=== PATIENT | male | born 1960 | race Caucasian/White ===

== ENCOUNTER 2017-03-17 19:40 | Emergency (ER) | payer OTHER ==
[2017-03-17 19:48] VITALS: BMI 25.1
--- NOTE | 2017-03-18 00:09 | DR.GENAD ---
HPI - PCP Primary Care Physician: [facility] [place] - Complaint/Symptoms Chief Complaint Doctors Comments: Patient states that he had two nodules on right forearm arise a few days ago; concerned that they may be cancerous. They are non tender non erythematous, moves freely. Chief Complaint:: 2 knots that came up yesterday, i am concerned they are blood clots. located to right upper arm. tender to touch. - Source History Provided: Patient - Mode of Arrival Mode of Arrival: Ambulatory - Timing Onset of Chief Complaint: 03/16/17 PMH - PMH Past Medical History: Yes Past Medical History: GERD, Hypertension Past Medical History Comment: walks with cane. chronic back pain Past Surgical History: Yes Surgical History: Ortho Surgery Past Surgical History Comment: right foot/heel- rt heel artificial - Family History History of Family Medical Conditions: Yes Family Medical History: Hypertension - Social History Type of Tobacco Use: Cigarettes Alcohol Use: Rarely Do you use any recreational Drugs:: No Lives Where: Home - infectious screening Have you traveled outside the country in the last 6 months?: No Isolation: Standard ROS - Review of Systems Eyes: No Symptoms Reported ENTM: No Symptoms Reported Respiratoy: No Symptoms Reported Cardiovascular: No Symptoms Reported Gastrointestinal/Abdominal: No Symptoms Reported Genitourinary: No Symptoms Reported Neurological: No Symptoms Reported Musculoskeletal: No Symptoms Reported Integumentary: No Symptoms Reported Hematologic/Lymphatic: No Symptoms Reported Endocrine: No Symptoms Reported Psychiatric: No Symptoms Reported All Other Systems: Reviewed and Negative PE - Vital Signs Vitals: Pulse Rate 97 Respiratory Rate 16 Blood Pressure 141/75 O2 Sat by Pulse Oximetry 95 - General Limitations: No Limitations General Appearance: Alert, In No Apparent Distress - Head Head Exam: Normal Inspection, Atraumatic - Eyes Eye exam: Normal Appearance, PERRL, EOMI - ENT ENT Exam: Normal Exam External Ear Exam: Normal External Inspection TM/Canal Exam: Bilateral Normal Nose Exam: Normal Nose Exam Mouth Exam: Normal Inspection Throat Exam: Normal Inspection - Neck Neck Exam: Normal Inspection, Full ROM - Chest Chest Inspection: Normal Inspection - Respiratory Respiratory Exam: Normal Lung Sounds Bilat, Accessory Muscle Use Respiratory Exam: Bilateral Clear to Auscultation - Cardiovascular Cardiovascular Exam: Regular Rate, Normal Rhythm - Abdominal Exam Abdominal Exam: Normal Inspection, Normal Bowel Sounds Abdominal Tenderness: negative: RUQ, RLQ, LUQ, LLQ, Epigastrium, Suprapubic, Diffuse, Mild, Moderate, Severe, Other - Extremities Extremities Exam: Normal Inspection - Back Back Exam: Other (Two freely moveable palapble soft tissue nodules beneath skin surface.) - Neurologic Neurological Exam: Alert, Oriented X3, CN II-XII Intact - Psychiatric Psychiatric Exam: Normal Affect - Skin Skin Exam: Warm, Dry, Intact - Diagnosis Discharge Problem: Lipoma Qualifiers: Lipoma location: upper extremity Laterality: right Qualified Code(s): D17.21 - Benign lipomatous neoplasm of skin and subcutaneous tissue of right arm - Discharge Plan Condition: Stable - Follow ups/Referrals Follow ups/Referrals: NFD,None [Primary Care Provider] - 3 days - Instructions
[2017-03-18 00:31] VITALS: BP 127/65
== END 2017-03-18 00:32 | disposition home or self-care (01) ==
LOC: ER 19:55
DX: D17.21 Benign lipomatous neoplasm of skin and subcutaneous tissue of right arm (principal)
CPT/HCPCS: 99281; 99282

== ENCOUNTER 2018-10-09 09:52 | Inpatient (IN) ==
[2018-10-09 09:58] VITALS: BMI 23.6
--- NOTE | 2018-10-09 10:08 | DR.EXTPAIN ---
HPI Time seen Time Seen by Provider: 10/09/18 10:08 PCP Primary Care Physician: ALINA WARD HPI Comment HPI Comment: PATIENT IS A 58 YEAR OLD MALE WITH REDNESS AND SWELLING MEDIAL ASPECT OF THE RIGHT ANKLE ASSOCIATED WITH FEVER THAT IS GETTING WORSE. PATIENT'S ILLNES WAS NOTED 3 DAYS AGO WITH A SMALL RED AREA ON THE ANKLE NOW HAS EXTENDED TO THE ENTIRE ANKLE GOING INTO THE LEGS. THERE IS NO DRAINAGE Complaint/Symptoms Chief Complaint Doctor Comments: RIGHT ANKLE REDNESS PAIN AND SWELLING X 3 DAYS Chief Complaint:: PT C/O RIGHT AKLE PAIN FOR THE PAST 3 DAYS, PT HAS HAND SUGERY IN THE PAST TO THIS ANKLE. BR Self Treatment fo Chief Complaint: EDEMA AND REDNESS NOTED ,BR Nurses notes reviewed Nurses Notes Review: Yes Source History Provided: Patient Mode of arrival Mode of Arrival: Stretcher Timing Onset of Chief Complaint: 09/30/18 Context History of: Arthritis Associated signs and symptoms Associated Signs and Symptoms: Weakness, Pain, Fever, Swelling and Cough PMH PMH Past Medical History: Yes Past Medical History: GERD and Hypertension Past Surgical History: Yes Surgical History: Ortho Surgery Family History History of Family Medical Conditions: Yes Family Medical History: Hypertension Social History Does patient currently use any type of tobacco product: Yes Have you used tobacco products in the last 12 months: Yes Type of Tobacco Use: Cigarettes How many years tobacco product used: 30 Does any household member use tobacco: No Do you use any recreational Drugs:: No Lives With: Family Lives Where: Home infectious screening In the last 2 months have you had wt loss of >10#?: NO Have you had fever, night sweats or hemotysis?: No Have you traveled outside the country in the last 6 months?: No Isolation: Standard ROS Review of Systems Constitutional: See HPI, Chills, Fever, Weakness and Fatigue Eyes: No Symptoms Reported and See HPI; negative Eye Pain, Tearing and Discharge ENTM: See HPI and Nose Congestion Respiratoy: See HPI, Productive Cough and Short of Breath; negative Wheezing Cardiovascular: No Symptoms Reported and See HPI; negative Chest Pain and Edema Gastrointestinal/Abdominal: No Symptoms Reported, See HPI and Nausea; negative Abdominal Pain, Constipation, Diarrhea and Vomiting Genitourinary: No Symptoms Reported and See HPI; negative Dysuria, Frequency and Hematuria Neurological: No Symptoms Reported, See HPI, Headache, Weakness and Dizziness Musculoskeletal: No Symptoms Reported, See HPI, Back Pain and Muscle Pain Integumentary: No Symptoms Reported, See HPI, Change in Color, Rash and Itching; negative Juandice Hematologic/Lymphatic: No Symptoms Reported and See HPI Endocrine: No Symptoms Reported and See HPI Psychiatric: No Symptoms Reported and See HPI All Other Systems: Reviewed and Negative PE Vital Signs Vitals: Temperature 99.2 F Pulse Rate [Left Brachial] 77 Pulse Rate [Right Radial] 80 Pulse Rate 90 Respiratory Rate 18 Blood Pressure [Left Arm] 130/74 Blood Pressure 147/71 O2 Sat by Pulse Oximetry 97 General Limitations: No Limitations General Appearance: Alert and In No Apparent Distress Head Head Exam: Normal Inspection Eyes Eye exam: Normal Appearance, PERRL and EOMI; negative Scleral Icterus and Conjunctival Injection ENT ENT Exam: Normal External Ear Exam; negative Normal Oropharynx and TM's Normal Bilaterally Neck Neck Exam: Normal Inspection and Trachea Midline; negative Tenderness and Lymphadenopathy Chest Chest Inspection: Normal Inspection and Symmetric Chest Wall Rise; negative Tenderness Respiratory Respiratory Exam: Normal Lung Sounds Bilat; negative Accessory Muscle Use, Chest Wall Tenderness and Respiratory Distress Respiratory Exam: Bilateral: Rhonchi and Lower: Rhonchi Cardiovascular Cardiovascular Exam: Regular Rate, Normal Rhythm and Normal Heart Sounds; negative Systolic Murmur and Diastolic Murmur Abdominal Exam Abdominal Exam: Normal Inspection, Normal Bowel Sounds and Soft; negative Tenderness Extremities Extremities Exam: Normal Inspection Back Back Exam: Normal Inspection Neurological Neurological Exam: Alert, Oriented X3 and CN II-XII Intact Psychiatric Psychiatric Exam: Normal Affect and Normal Mood Skin Skin Exam: Warm, Dry, Intact and Normal Color MDM Differential Diagnosis Differential Diagnosis: Other (CELLULITIS RIGHT ANKLE RULE OUT SEPTIC ARTHRITIS RIGHT ANKLE) COURSE Treatment Treatment: SEE ORDERS Consultation Consultation Comments: DISCUSSED PATIENT WITH DR. RIVERS, HE WILL ADMIT PATIENT X 2 MINTUTES. ADMIT ORDERS DONE Education/Counseling Education/Counseling: Patient Educated On: Diagnosis ROR Labs Reviewed Laboratory Results Reviewed?: Yes Result Diagrams: 10/11/18 05:08 10/11/18 05:08 Laboratory: 10/09/18 11:41 Blood Blood Culture - Preliminary 10/09/18 14:38 Foot - Right Gram Stain - Final 10/09/18 14:38 Foot - Right Wound Culture - Final Methicillin Resis Staph Aureus 10/09/18 11:00 Blood Blood Culture - Preliminary WBC 8.0 X10^3/uL (3.6-10.0) 10/11/18 05:08 RBC 3.58 X10^6/uL (4.7-6.0) L 10/11/18 05:08 Hgb 7.6 g/dL (13.5-18.0) L 10/11/18 05:08 Hct 23.4 % (42.0-54.0) L 10/11/18 05:08 MCV 65.3 fL (80.0-100.0) L 10/11/18 05:08 MCH 21.3 pg (27.0-34.0) L 10/11/18 05:08 MCHC 32.6 g/dL (33.0-35.0) L 10/11/18 05:08 RDW 17.8 % (11.6-16.5) H 10/11/18 05:08 Plt Count 98 X10^3/uL (150.0-450.0) L 10/11/18 05:08 Plt Count Comment Decreased (ADEQUATE) 10/11/18 05:08 MPV 8.8 fL (7.4-11.0) 10/11/18 05:08 Neut % (Auto) 76.4 % (42.0-75.0) H 10/11/18 05:08 Lymph % (Auto) 12.2 % (21.0-51.0) L 10/11/18 05:08 [place] % (Auto) 9.7 % (0.0-13.0) 10/11/18 05:08 Eos % (Auto) 1.0 % (0.9-2.9) 10/11/18 05:08 Baso % (Auto) 0.7 % (0.2-1.0) 10/11/18 05:08 Neut # (Auto) 6.1 x10^3/uL (2.2-4.8) H 10/11/18 05:08 Lymph # (Auto) 1.0 X10^3/uL (1.3-2.9) L 10/11/18 05:08 [place] # (Auto) 0.8 x10^3/uL (0.3-0.8) 10/11/18 05:08 Eos # (Auto) 0.1 x10^3/uL (0.0-0.2) 10/11/18 05:08 Baso # (Auto) 0.1 X10^3/uL (0.0-0.1) 10/11/18 05:08 Absolute Nucleated RBC 0.1 /100WBC 10/11/18 05:08 Plt Morphology Comment Normal (NORMAL) 10/11/18 05:08 RBC Morphology Abnormal (NORMAL) 10/11/18 05:08 Hypochromasia 2+ A 10/11/18 05:08 Anisocytosis Slight A 10/11/18 05:08 Microcytosis 1+ A 10/11/18 05:08 Ovalocytes Present 10/11/18 05:08 ESR 104 MM/HOUR (0-15) H 10/09/18 16:16 Sodium 136 mmol/L (136-145) 10/11/18 05:08 Corrected Sodium TNP 10/11/18 05:08 Potassium 3.7 mmol/L (3.5-5.1) 10/11/18 05:08 Chloride 105 mmol/L (98-107) 10/11/18 05:08 Carbon Dioxide 20.0 mmol/L (21-32) L 10/11/18 05:08 BUN 13 mg/dL (7-18) 10/11/18 05:08 Creatinine 0.95 mg/dL (0.70-1.30) 10/11/18 05:08 Est GFR (MDRD) Af Amer > 60 (>60) 10/11/18 05:08 Est GFR (MDRD) Non-Af > 60 (>60) 10/11/18 05:08 Glucose 107 mg/dL (65-99) H 10/11/18 05:08 Lactic Acid 1.5 mmol/L (0.4-2.0) 10/09/18 11:41 Uric Acid 3.4 mg/dL (3.5-7.2) L 10/09/18 16:16 Calcium 8.8 mg/dL (8.5-10.1) 10/11/18 05:08 Corrected Calcium 10.6 mg/dL (8.5-10.1) H 10/11/18 05:08 Magnesium 2.0 mg/dL (1.7-2.9) 10/11/18 05:02 Total Bilirubin 1.40 mg/dL (0.2-1.0) H 10/11/18 05:08 AST 47 Units/L (15-37) H 10/11/18 05:08 ALT 25 Units/L (12-78) 10/11/18 05:08 Alkaline Phosphatase 316 Units/L (46-116) H 10/11/18 05:08 C-Reactive Protein 237.70 mg/L (0-3.0) H 10/09/18 11:41 Total Protein 7.1 g/dL (6.4-8.2) 10/11/18 05:08 Albumin 1.7 g/dL (3.4-5.0) L 10/11/18 05:08 Globulin 5.4 g/dL (2.5-4.5) H 10/11/18 05:08 Albumin/Globulin Ratio 0.3 Ratio (1.1-2.1) L 10/11/18 05:08 Specimen Type Clean catch urine 10/09/18 16:40 Urine Color Dark yellow (YELLOW) 10/09/18 16:40 Urine Appearance Cloudy (CLEAR) 10/09/18 16:40 Urine pH 6.0 (5.0 - 8.0) 10/09/18 16:40 Ur Specific [place] 1.015 (1.000-1.030) 10/09/18 16:40 Urine Protein 3+ (NEGATIVE) 10/09/18 16:40 Urine Glucose (UA) Negative (NEGATIVE) 10/09/18 16:40 Urine Ketones Negative (NEGATIVE) 10/09/18 16:40 Urine Occult Blood 4+ (NEGATIVE) 10/09/18 16:40 Urine Nitrite Negative (NEGATIVE) 10/09/18 16:40 Urine Bilirubin 2+ (NEGATIVE) 10/09/18 16:40 Urine Urobilinogen 3+ (NORMAL) 10/09/18 16:40 Ur Leukocyte Esterase 1+ (NEGATIVE) 10/09/18 16:40 Urine RBC 5-10 /HPF (NONE SEEN) 10/09/18 16:40 Urine WBC 3-5 /HPF (NONE SEEN) 10/09/18 16:40 Ur Squamous Epith Cells Few /HPF (NEGATIVE) 10/09/18 16:40 Amorphous Sediment 1+ /HPF (NEGATIVE) 10/09/18 16:40 Urine Bacteria Trace /HPF (NEGATIVE) 10/09/18 16:40 Urine Mucus Moderate /HPF (NEGATIVE) 10/09/18 16:40 Ur Culture Indicated? No/not indicated 10/09/18 16:40 Vancomycin Trough 12.7 ug/mL (15-20) L 10/10/18 20:35 XRAY XRAY Interpreted by: Radiologist XRAY Findings: REPORT ON RECORD NOTED AND DISCUSSED WITH PATIENT Opioid Opioid Risk Tool Total: 0 Total Score Risk Category: Low Risk Copyright: Keith VERDUGO predicting aberrant behaviors Management Prescription drug monitoring program results: PDMP was not reviewed Diagnosis Discharge Problem: Cellulitis of right ankle Septic arthritis of right ankle Qualifiers: Septic arthritis organism: due to unspecified organism Qualified Code(s): M00.9 - Pyogenic arthritis, unspecified
[2018-10-09] MEDS ORDERED: ZOFRAN INJ 4 MG VIAL IVP ONE (11:03)
[2018-10-09] MEDS ORDERED: MORPHINE SULFATE INJ 4 MG IVP ONE (11:03)
[2018-10-09] MEDS ORDERED: ZOFRAN INJ 4 MG VIAL ONE (11:48)
--- NOTE | 2018-10-09 11:48 | RAD ---
HISTORY: Right ankle pain for the past 3 days. Prior surgery to the ankle. Study: Three-view right ankle Comparison: No priors Findings: There is evidence of osteotomy involving the lower posterior half of the calcaneus. Severe degenerative changes seen involving the subtalar joint. There is medial and lateral soft tissue swelling. Surgical clips are seen in the region of the posterior right ankle soft tissues. No evidence of fracture or dislocation is seen. There is no significant periosteal reaction. IMPRESSION: Postsurgical changes, degenerative changes and soft tissue swelling. No fracture or dislocation is seen. Reported By:
[2018-10-09] MEDS ORDERED: MORPHINE SULFATE INJ 2 MG INJ ONE ×2 (11:49→11:51)
[2018-10-09 11:55] LABS: BASOPHILS # (AUTO) 0.1 X10^3/uL (0.0-0.1); BASOPHILS % (AUTO) 0.8 % (0.2-1.0); EOSINOPHILS # (AUTO) 0.1 x10^3/uL (0.0-0.2); EOSINOPHILS % (AUTO) 0.8 % (0.9-2.9); HEMATOCRIT 34.4 % (42.0-54.0); HEMOGLOBIN 11.1 g/dL (13.5-18.0); LYMPHOCYTES # (AUTO) 0.8 X10^3/uL (1.3-2.9); LYMPHOCYTES % (AUTO) 8.1 % (21.0-51.0); MEAN CORPUSCULAR HEMOGLOBIN 20.8 pg (27.0-34.0); MEAN CORPUSCULAR HGB CONC 32.1 g/dL (33.0-35.0); MEAN CORPUSCULAR VOLUME 64.8 fL (80.0-100.0); MEAN PLATELET VOLUME 8.3 fL (7.4-11.0); MONOCYTES # (AUTO) 0.7 x10^3/uL (0.3-0.8); NEUTROPHILS # (AUTO) 8.6 x10^3/uL (2.2-4.8); NEUTROPHILS % (AUTO) 83.3 % (42.0-75.0); PLATELET COUNT 124 X10^3/uL (150.0-450.0); RED BLOOD COUNT 5.32 X10^6/uL (4.7-6.0); RED CELL DISTRIBUTION WIDTH 18.5 % (11.6-16.5); WHITE BLOOD COUNT 10.4 X10^3/uL (3.6-10.0)
[2018-10-09] MEDS: NS 1000 ML 1,000 ML IV SCH ×2 (11:57→21:28)
[2018-10-09 12:08] LABS: ALANINE AMINOTRANSFERASE 17 Units/L (12-78); ALBUMIN 2.2 g/dL (3.4-5.0); ALKALINE PHOSPHATASE 349 Units/L (46-116); ASPARTATE AMINO TRANSFERASE 49 Units/L (15-37); BLOOD UREA NITROGEN 18 mg/dL (7-18); CALCIUM 10.5 mg/dL (8.5-10.1); CARBON DIOXIDE 24.5 mmol/L (21-32); CHLORIDE 98 mmol/L (98-107); COR CA(FOR HYPOALB) 11.9 mg/dL (8.5-10.1); CREATININE 1.01 mg/dL (0.70-1.30); SODIUM 132 mmol/L (136-145); TOTAL PROTEIN 9.2 g/dL (6.4-8.2); eGFR NON BLACK RACES > 60 (>60)
[2018-10-09 12:09] LABS: HYPOCHROMASIA 2+; MICROCYTOSIS 2+; PLATELET MORPHOLOGY COMMENT NORMAL (NORMAL)
[2018-10-09 12:12] LABS: LACTIC ACID 1.5 mmol/L (0.4-2.0)
--- NOTE | 2018-10-09 13:11 | RAD ---
HISTORY: Central line placement Study: Single-view chest Comparison: No priors Findings: Left-sided subclavian line is present with the tip in mid SVC. No pneumothorax is seen. Trachea is midline. Heart size is normal. There is aortic uncoiling. There are increased interstitial markings bilaterally which may indicate interstitial fibrotic disease. No consolidation, CHF or pleural fluid is seen. Osseous structures are intact. IMPRESSION: Left-sided subclavian line present with the tip in the mid SVC. Bilateral interstitial lung disease without consolidation, CHF, pleural fluid or pneumothorax. Reported By:
[2018-10-09] MEDS ORDERED: MORPHINE SULFATE INJ 4 MG IVP PRN (13:39)
[2018-10-09] MEDS ORDERED: LEVAQUIN PREMIX IV 750 MG 750 MG/150 ML BAG IV ONE (13:39)
[2018-10-09] MEDS ORDERED: ZOFRAN INJ 4 MG VIAL IVP PRN (13:39)
[2018-10-09] MEDS: VANCOMYCIN HCL 1 GM VIAL 1 G in D5W 250 ML IV 250 ML IV SCH ×2 (13:48→20:57)
[2018-10-09] MEDS ORDERED: ZOFRAN TAB 4 MG PO PRN (13:58)
[2018-10-09] MEDS ORDERED: PHARMACY CONSULT - VANCOMYCIN XX SCH (14:00)
[2018-10-09] MEDS: ZOFRAN SYRUP 4 MG UDC PO SCH ×2 (15:50→21:28)
[2018-10-09 17:20] LABS: BILIRUBIN,URINE 2+ (NEGATIVE); BLOOD/HEMOGLOBIN,URINE 4+ (NEGATIVE); GLUCOSE, URINE NEGATIVE (NEGATIVE); KETONES,URINE NEGATIVE (NEGATIVE); LEUKOCYTE ESTERASE ,URINE 1+ (NEGATIVE); NITRITES,URINE NEGATIVE (NEGATIVE); PROTEIN,URINE 3+ (NEGATIVE); UROBILINOGEN,URINE 3+ (NORMAL)
[2018-10-09 18:20] LABS: APPEARANCE,URINE CLOUDY (CLEAR); COLOR,URINE DARK YELLOW (YELLOW)
[2018-10-09 18:21] LABS: AMORPHOUS SEDIMENT,UR 1+ /HPF (NEGATIVE); BACTERIA,URINE TRACE /HPF (NEGATIVE); SQUAMOUS EPITHELIAL CELL,UR FEW /HPF (NEGATIVE)
[2018-10-09 18:27] LABS: MUCUS,URINE MODERATE /HPF (NEGATIVE)
[2018-10-09] MEDS: TORADOL 30 MG VIAL IVP PRN (18:31)
[2018-10-09] MEDS: MOTRIN TAB 600 MG PO PRN (22:52)
[2018-10-10] MEDS: TORADOL 30 MG VIAL IVP PRN ×3 (02:57→20:51)
[2018-10-10] MEDS: NS 1000 ML 1,000 ML IV SCH ×3 (04:06→21:17)
[2018-10-10] MEDS: ZOFRAN SYRUP 4 MG UDC PO SCH (04:06)
[2018-10-10 05:46] LABS: ALANINE AMINOTRANSFERASE 18 Units/L (12-78); ALBUMIN 1.7 g/dL (3.4-5.0); ALKALINE PHOSPHATASE 288 Units/L (46-116); ASPARTATE AMINO TRANSFERASE 35 Units/L (15-37); BLOOD UREA NITROGEN 17 mg/dL (7-18); CALCIUM 8.8 mg/dL (8.5-10.1); CARBON DIOXIDE 25.5 mmol/L (21-32); CHLORIDE 102 mmol/L (98-107); COR CA(FOR HYPOALB) 10.6 mg/dL (8.5-10.1); CREATININE 1.06 mg/dL (0.70-1.30); SODIUM 134 mmol/L (136-145); TOTAL PROTEIN 7.2 g/dL (6.4-8.2); eGFR NON BLACK RACES > 60 (>60)
[2018-10-10] MEDS: MOTRIN TAB 600 MG PO PRN ×2 (05:59→16:54)
[2018-10-10 07:30] LABS: BASOPHILS % (AUTO) 0.5 % (0.2-1.0); EOSINOPHILS # (AUTO) 0.1 x10^3/uL (0.0-0.2); EOSINOPHILS % (AUTO) 1.5 % (0.9-2.9); HEMATOCRIT 25.1 % (42.0-54.0); HEMOGLOBIN 8.1 g/dL (13.5-18.0); LYMPHOCYTES # (AUTO) 0.8 X10^3/uL (1.3-2.9); LYMPHOCYTES % (AUTO) 11.4 % (21.0-51.0); MEAN CORPUSCULAR HEMOGLOBIN 20.8 pg (27.0-34.0); MEAN CORPUSCULAR HGB CONC 32.2 g/dL (33.0-35.0); MEAN CORPUSCULAR VOLUME 64.4 fL (80.0-100.0); MEAN PLATELET VOLUME 8.1 fL (7.4-11.0); MONOCYTES # (AUTO) 0.9 x10^3/uL (0.3-0.8); MONOCYTES % (AUTO) 12.2 % (0.0-13.0); NEUTROPHILS # (AUTO) 5.4 x10^3/uL (2.2-4.8); NEUTROPHILS % (AUTO) 74.4 % (42.0-75.0); PLATELET COUNT 95 X10^3/uL (150.0-450.0); RED CELL DISTRIBUTION WIDTH 18.3 % (11.6-16.5); WHITE BLOOD COUNT 7.3 X10^3/uL (3.6-10.0)
[2018-10-10 07:35] LABS: HYPOCHROMASIA 2+; PLATELET MORPHOLOGY COMMENT NORMAL (NORMAL)
[2018-10-10 07:36] LABS: ANISOCYTOSIS SLIGHT; MICROCYTOSIS 2+; OVALOCYTES PRESENT
[2018-10-10] MEDS: LYRICA CAP 100 MG PO SCH (09:25)
[2018-10-10] MEDS: VANCOMYCIN HCL 1 GM VIAL 1 G in D5W 250 ML IV 250 ML IV SCH ×2 (09:26→22:03)
[2018-10-10] MEDS: PriLOSEC PO SCH (09:26)
[2018-10-10] MEDS: ROXICODONE TAB 15 MG PO PRN ×2 (09:31→18:05)
[2018-10-10] MEDS: ZESTRIL TAB 10 MG PO SCH (09:33)
[2018-10-10] MEDS ORDERED: PHARMACY COMMENT IV NR (20:30)
[2018-10-10 21:00] LABS: CREATININE 0.8 mg/dL (0.70-1.30); VANCOMYCIN,TROUGH 12.7 ug/mL (15-20)
[2018-10-10] MEDS: RESTORIL CAP 15 MG PO PRN (21:44)
[2018-10-10] MEDS ORDERED: PHARMACY CONSULT - VANCOMYCIN XX SCH (22:00)
[2018-10-11] MEDS: MOTRIN TAB 600 MG PO PRN ×3 (00:12→23:41)
[2018-10-11] MEDS: NS 1000 ML 1,000 ML IV SCH ×3 (02:25→21:11)
[2018-10-11] MEDS: ROXICODONE TAB 15 MG PO PRN ×3 (02:31→20:14)
[2018-10-11] MEDS: TORADOL 30 MG VIAL IVP PRN ×2 (05:23→17:15)
[2018-10-11 05:29] LABS: BASOPHILS # (AUTO) 0.1 X10^3/uL (0.0-0.1); BASOPHILS % (AUTO) 0.7 % (0.2-1.0); EOSINOPHILS # (AUTO) 0.1 x10^3/uL (0.0-0.2); HEMATOCRIT 23.4 % (42.0-54.0); HEMOGLOBIN 7.6 g/dL (13.5-18.0); LYMPHOCYTES % (AUTO) 12.2 % (21.0-51.0); MEAN CORPUSCULAR HEMOGLOBIN 21.3 pg (27.0-34.0); MEAN CORPUSCULAR HGB CONC 32.6 g/dL (33.0-35.0); MEAN CORPUSCULAR VOLUME 65.3 fL (80.0-100.0); MEAN PLATELET VOLUME 8.8 fL (7.4-11.0); MONOCYTES # (AUTO) 0.8 x10^3/uL (0.3-0.8); MONOCYTES % (AUTO) 9.7 % (0.0-13.0); NEUTROPHILS # (AUTO) 6.1 x10^3/uL (2.2-4.8); NEUTROPHILS % (AUTO) 76.4 % (42.0-75.0); PLATELET COUNT 98 X10^3/uL (150.0-450.0); RED BLOOD COUNT 3.58 X10^6/uL (4.7-6.0); RED CELL DISTRIBUTION WIDTH 17.8 % (11.6-16.5)
[2018-10-11 05:38] LABS: ALANINE AMINOTRANSFERASE 25 Units/L (12-78); ALBUMIN 1.7 g/dL (3.4-5.0); ALKALINE PHOSPHATASE 316 Units/L (46-116); ASPARTATE AMINO TRANSFERASE 47 Units/L (15-37); BLOOD UREA NITROGEN 13 mg/dL (7-18); CALCIUM 8.8 mg/dL (8.5-10.1); CHLORIDE 105 mmol/L (98-107); COR CA(FOR HYPOALB) 10.6 mg/dL (8.5-10.1); CREATININE 0.95 mg/dL (0.70-1.30); SODIUM 136 mmol/L (136-145); TOTAL PROTEIN 7.1 g/dL (6.4-8.2); eGFR NON BLACK RACES > 60 (>60)
[2018-10-11 06:07] LABS: PLATELET MORPHOLOGY COMMENT NORMAL (NORMAL)
[2018-10-11 06:08] LABS: ANISOCYTOSIS SLIGHT; HYPOCHROMASIA 2+; MICROCYTOSIS 1+; OVALOCYTES PRESENT
[2018-10-11] MEDS ORDERED: POTASSIUM CHL 60 MEQ/NS 0.45% 500 ML IV PRN (06:14)
[2018-10-11] MEDS ORDERED: MAGNESIUM SULFATE 1 GRAM/100 mL PREMIX 1 GM/100 ML BAG IV PRN (06:14)
[2018-10-11] MEDS ORDERED: KLOR-CON PO PRN (06:14)
[2018-10-11] MEDS ORDERED: K-RIDER 10 MEQ/NS 100 ML 10 MEQ/100 ML BAG IV PRN (06:14)
[2018-10-11] MEDS ORDERED: POTASSIUM CHL 40 MEQ/NS 0.45% 500 ML IV PRN (06:14)
[2018-10-11] MEDS ORDERED: POTASSIUM CHLORIDE LIQ 20 MEQ UDC PO PRN (06:14)
[2018-10-11] MEDS ORDERED: MICRO K EXTEN CAP 10 MEQ PO PRN (06:14)
[2018-10-11] MEDS: K-DUR TAB 20 MEQ PO PRN (06:36)
[2018-10-11] MEDS: VANCOMYCIN HCL 1 GM VIAL 1 G in D5W 250 ML IV 250 ML IV SCH ×2 (08:21→21:11)
[2018-10-11] MEDS: ZESTRIL TAB 10 MG PO SCH (08:22)
[2018-10-11] MEDS: LYRICA CAP 100 MG PO SCH (08:22)
[2018-10-11] MEDS: PriLOSEC PO SCH (08:22)
[2018-10-11] MEDS: RESTORIL CAP 15 MG PO PRN (20:14)
[2018-10-12] MEDS: TORADOL 30 MG VIAL IVP PRN ×2 (03:28→17:34)
[2018-10-12] MEDS: NS 1000 ML 1,000 ML IV SCH ×3 (03:30→19:44)
[2018-10-12] MEDS: ROXICODONE TAB 15 MG PO PRN (04:33)
[2018-10-12 05:51] LABS: BASOPHILS % (AUTO) 0.6 % (0.2-1.0); EOSINOPHILS # (AUTO) 0.1 x10^3/uL (0.0-0.2); EOSINOPHILS % (AUTO) 2.3 % (0.9-2.9); HEMATOCRIT 23.1 % (42.0-54.0); HEMOGLOBIN 7.5 g/dL (13.5-18.0); LYMPHOCYTES % (AUTO) 15.9 % (21.0-51.0); MEAN CORPUSCULAR HEMOGLOBIN 21.4 pg (27.0-34.0); MEAN CORPUSCULAR HGB CONC 32.4 g/dL (33.0-35.0); MEAN PLATELET VOLUME 8.5 fL (7.4-11.0); MONOCYTES # (AUTO) 0.6 x10^3/uL (0.3-0.8); MONOCYTES % (AUTO) 9.3 % (0.0-13.0); NEUTROPHILS # (AUTO) 4.6 x10^3/uL (2.2-4.8); NEUTROPHILS % (AUTO) 71.9 % (42.0-75.0); PLATELET COUNT 101 X10^3/uL (150.0-450.0); RED CELL DISTRIBUTION WIDTH 17.8 % (11.6-16.5); WHITE BLOOD COUNT 6.4 X10^3/uL (3.6-10.0)
[2018-10-12 06:02] LABS: ALANINE AMINOTRANSFERASE 39 Units/L (12-78); ALBUMIN 1.6 g/dL (3.4-5.0); ALKALINE PHOSPHATASE 355 Units/L (46-116); ASPARTATE AMINO TRANSFERASE 86 Units/L (15-37); BLOOD UREA NITROGEN 8 mg/dL (7-18); CALCIUM 8.8 mg/dL (8.5-10.1); CARBON DIOXIDE 20.2 mmol/L (21-32); CHLORIDE 106 mmol/L (98-107); COR CA(FOR HYPOALB) 10.7 mg/dL (8.5-10.1); COR NA(FOR HYPERGLY) 138 mmol/L (136-145); CREATININE 1.02 mg/dL (0.70-1.30); SODIUM 137 mmol/L (136-145); TOTAL PROTEIN 7.2 g/dL (6.4-8.2); eGFR NON BLACK RACES > 60 (>60)
[2018-10-12 06:17] LABS: HYPOCHROMASIA 2+; MICROCYTOSIS 1+; PLATELET MORPHOLOGY COMMENT NORMAL (NORMAL)
[2018-10-12] MEDS: K-DUR TAB 20 MEQ PO PRN (06:19)
[2018-10-12] MEDS: VANCOMYCIN HCL 1 GM VIAL 1 G in D5W 250 ML IV 250 ML IV SCH ×2 (08:30→21:42)
[2018-10-12] MEDS: MORPHINE SULFATE INJ 4 MG IVP PRN ×2 (08:56→20:57)
[2018-10-12] MEDS ORDERED: PHARMACY CONSULT - DOSE _____ XX SCH (09:00)
[2018-10-12] MEDS ORDERED: STERILE WATER IRRIGATION ONE (09:34)
--- NOTE | 2018-10-12 11:21 | DR.H&P ---
H&P - History & Physical for Day of: H&P Date: 10/09/18 - Chief Complaint Chief Complaint: RIGHT FOOT PAIN AND SWELLING - History of Present Illness History of Present Illness: IS A 58 YEAR OLD PATIENT OF OURS. HE PRESENTED TO THE ER WITH COMPLAINTS OF RIGHT ANKLE PAIN AND SWELLING X 3 DAYS. ON EXAMINATION, THERE IS REDNESS AND SWELLING TO THE MEDIAL ASPECT OF THE RIGHT ANKLE. HE REPORTS THAT IT BEGAN A SMALL RED AREA ON THE ANKLE AND HAS NOW EXTENDED TO THE ENTIRE ANKLE AND IS MOVING UP TOWARDS THE LEGS. HE REPORTS FEVER AND WEAKNESS AT HOME. ON ARRIVAL, VITALS WERE 98.1-90-20-94%-147/71. LABS WERE OBTAINED. ABNORMAL LAB VALUES INCLUDE THE FOLLOWING: WBC 10.4, HGB 11.1, HCT 34.4, PLT COUNT 124, SODIUM 132, GLUCOSE 110, CALCIUM 10.5, TOTAL BILI 3.10, AST 49, ALK PHOS 349, CRP 237.70, TOTAL PROTEIN 9.2, ALBUMIN 2.2, GLOBULIN 7.0. A URINALYSIS WAS OBTAINED AND REVEALED: WBC 3-5, RBC 5-10, BACTERIA TRACE, LEUKOCYTES 1+, OCCULT BLOOD 4+. BLOOD AND WOUND CULTURES WERE TAKEN. AN ANKLE XRAY WAS OBTAINED AND REVEALED: There is evidence of osteotomy involving the lower posterior half of the calcaneus. Severe degenerative changes seen involving the subtalar joint. There is medial and lateral soft tissue swelling. Surgical clips are seen in the region of the posterior right ankle soft tissues. No evidence of fracture or dislocation is seen. There is no significant periosteal reaction. DUE TO POSSIBLE OSTEOMYELITIS, WE CONSULTED FOR CENTRAL LINE PLACMENT. A CENTRAL LINE WAS PLACED WHILE PATIENT WAS IN THE ER. HE WAS ADMITTED TO THE HOSPITAL FOR FURTHER EVALUATION AND TREATMENT OF RIGHT ANKLE CELLULITIS, RULE OUT SEPTIC ARTHRITIS RIGHT ANKLE. HE WAS STARTED ON NORMAL SALINE AT 125ML/HR, VANCOMYCIN 1G IV Q12H, MORPHINE 4MG IV Q4H PRN PAIN, TORADOL 30MG IV Q8H PRN PAIN, AND HIS HOME MEDICATIONS WERE RESUMED. WE PLANNED TO FOLLOW UP WITH [facility] AND CONTINUE TO MONITOR. - Past Medical History Past Medical History: Hypertension, GERD - Past Surgical History Surgical History: Ortho Surgery - Family History Family Medical History: Hypertension - Social History Does patient currently use any type of tobacco product: Yes Have you used tobacco products in the last 12 months: Yes Type of Tobacco Use: Cigarettes How many years tobacco product used: 30 Does any household member use tobacco: No Alcohol Use: None Drug Use: Prescription Drugs - Medications Home Medications: No Known Drug Allergies Allergy (Verified 10/09/18 09:54) CONTINUE taking the following medications erythromycin 1 drp OPHTHALMIC (EYE) TID 10/09/18 [History] - Review of Systems Constitutional: Fever, Weakness Eyes: No Symptoms Reported ENT: No Symptoms Reported Respiratory: No Symptoms Reported Cardiovascular: No Symptoms Reported Gastrointestinal: No Symptoms Reported Genitourinary: No Symptoms Reported Musculoskeletal: Foot Pain (RIGHT FOOT PAIN AND SWELLING ) Skin: See HPI, Wound Neurological: Weakness - Physical Exam Vital Signs: Temperature 98.1 F Pulse Rate [Left Brachial] 84 Pulse Rate [Right Radial] 80 Pulse Rate 90 Respiratory Rate 20 Blood Pressure [Left Arm] 127/71 Blood Pressure 147/71 O2 Sat by Pulse Oximetry 98 Oriented: Normal Eyes: Normal Ear: Normal Nose: Normal Throat: Normal Respiratory: Diminished Throughout Cardiovascular: Normal. negative: S3, S4, Murmur : Normal Auscultation: Bowel Sounds: Normal Palpation: Normal Tenderness: Normal Skin: Red, Tender, Hot, Wound (RIGHT ANKLE ) Musculoskeletal: Right, Ankle, Swelling, Tender Psychiatric: Normal Mood Description: Calm Affect: Normal Speech Pattern: Clear - Assessment/Plan (1) Cellulitis of right ankle Status: Acute Plan: ADMIT, IV ANTIBIOTICS, PAIN MANAGEMENT, OCNTINUE TO MONITOR (2) Septic arthritis of right ankle Qualifiers: Septic arthritis organism: due to unspecified organism Qualified Code(s): M00.9 - Pyogenic arthritis, unspecified Status: Acute - Allergies Allergies/Adverse Reactions: Allergies Allergy/AdvReac Type Severity Reaction Status Date / Time No Known Drug Allergies Allergy Verified 10/09/18 09:54
[2018-10-12] MEDS: MOTRIN TAB 600 MG PO PRN (12:33)
[2018-10-12] MEDS ORDERED: XYLOCAINE 1 % (PLAIN) ONE (13:16)
[2018-10-12] MEDS ORDERED: BACITRACIN VIAL ONE (13:16)
[2018-10-12] MEDS ORDERED: FENTANYL INJ 100 mcg ONE (14:07)
--- NOTE | 2018-10-12 14:53 | OR.GENERIC ---
Post-Op Note Generic - Post-Op Note Operative Report: I&D of large Rt ankle abscess on the medial aspect was done .( large cavity , 8cm ) packed with Iodoform . to keep the foot elevated , IV ATB and local care .
[2018-10-12] MEDS: LYRICA CAP 100 MG PO SCH (15:37)
[2018-10-12] MEDS: PriLOSEC PO SCH (15:38)
[2018-10-12] MEDS: ZESTRIL TAB 10 MG PO SCH (15:38)
[2018-10-12] MEDS ORDERED: DIPRIVAN VIAL ONE (15:41)
[2018-10-12] MEDS ORDERED: VERSED ONE (15:41)
[2018-10-12] MEDS ORDERED: NS 500 ML IV 500 ML ONE (15:47)
--- NOTE | 2018-10-12 17:02 | PCM.PROG ---
Progress Note - Progress Note for Day of Date of Exam: 10/10/18 - Subjective Subjective: WAS ADMITTED FOR RIGHT ANKLE CELLULITIS, RULE OUT SEPTIC ARTHRITIS. TODAY, HE IS ALERT AND ORIENTED, LYING IN BED ON MORNING ROUNDS. HE CONTINUES WITH PAIN, ERYTHEM, AND EDEMA TO THE RIGHT ANKLE. HIS VITALS THIS MORNING ARE: 98.2-80-20-97%-145/74. LABS WERE OBTAINED. ABNORMAL LAB VALUES INCLUDE THE FOLLOWING: RBC 3.90, HGB 8.1, HCT 25.1, PLT COUNT 95, SODIUM 134, GLUCOSE 104, TOTAL BILI 1.60, ALK PHOS 288, ALBUMIN 1.7. BLOOD AND WOUND CULTURES ARE PENDING. WAS CONSULTED, BUT WILL NOT BE BACK IN TOWN TO SEE PATIENT UNTIL FRIDAY. HE IS CURRENTLY RECEIVING IV VANCOMYCIN. WE WILL CONTINUE WITH IV ANTIBIOTICS AND MONITOR FOR INCREASED SWELLING AND ERYTHEM TODAY. OTHERWISE, WE PLAN TO FOLLOW UP WITH AM LABS AND CONTINUE TO MONITOR. - Past Medical Family Social History Past Med/Fam/Surg Hx: No changes since H&P Allergies: Allergies No Known Drug Allergies Allergy (Verified 10/09/18 09:54) - Review of Systems ROS: No change since H&P - Vital Signs and I&O's Vital Signs: Temperature 98.4 F Pulse Rate [Left Brachial] 65 Pulse Rate [Right Radial] 80 Pulse Rate 90 Respiratory Rate 18 Blood Pressure [Left Arm] 147/83 Blood Pressure 147/71 O2 Sat by Pulse Oximetry 96 Intake and Output: Intake & Output 10/10/18 10/11/18 10/12/18 10/13/18 11:59 11:59 11:59 11:59 Intake Total 1741 / 1741 4585 / 4585 3450 / 3450 170 / 170 Output Total 1200 / 1200 1600 / 1600 2024 / 2024 450 / 450 Balance 541 / 541 2985 / 2985 1425 / 1425 -280 / -280 - Physical Exam Oriented: Normal Eyes: Normal Ear: Normal Nose: Normal Throat: Normal Respiratory: Normal Cardiovascular: Normal. negative: S3, S4, Murmur : Normal Auscultation: Bowel Sounds: Normal Palpation: Normal Tenderness: Normal Skin: Red, Tender, Hot, Wound (RIGHT ANKLE ) Musculoskeletal: Right, Ankle, Swelling, Tender Psychiatric: Normal Mood Description: Calm Affect: Normal Speech Pattern: Clear - Laboratory and Diagnostics Result Diagrams: 10/12/18 04:32 10/12/18 04:32 Labs: 10/12/18 14:20 Ankle - Right Gram Stain - Final 10/09/18 11:41 Blood Blood Culture - Final Methicillin Resis Staph Aureus 10/09/18 14:38 Foot - Right Gram Stain - Final 10/09/18 14:38 Foot - Right Wound Culture - Final Methicillin Resis Staph Aureus 10/09/18 11:00 Blood Blood Culture - Preliminary Laboratory WBC 6.4 X10^3/uL (3.6-10.0) 10/12/18 04:32 RBC 3.50 X10^6/uL (4.7-6.0) L 10/12/18 04:32 Hgb 7.5 g/dL (13.5-18.0) L 10/12/18 04:32 Hct 23.1 % (42.0-54.0) L 10/12/18 04:32 MCV 66.0 fL (80.0-100.0) L 10/12/18 04:32 MCH 21.4 pg (27.0-34.0) L 10/12/18 04:32 MCHC 32.4 g/dL (33.0-35.0) L 10/12/18 04:32 RDW 17.8 % (11.6-16.5) H 10/12/18 04:32 Plt Count 101 X10^3/uL (150.0-450.0) L 10/12/18 04:32 Plt Count Comment Decreased (ADEQUATE) 10/12/18 04:32 MPV 8.5 fL (7.4-11.0) 10/12/18 04:32 Neut % (Auto) 71.9 % (42.0-75.0) 10/12/18 04:32 Lymph % (Auto) 15.9 % (21.0-51.0) L 10/12/18 04:32 [place] % (Auto) 9.3 % (0.0-13.0) 10/12/18 04:32 Eos % (Auto) 2.3 % (0.9-2.9) 10/12/18 04:32 Baso % (Auto) 0.6 % (0.2-1.0) 10/12/18 04:32 Neut # (Auto) 4.6 x10^3/uL (2.2-4.8) 10/12/18 04:32 Lymph # (Auto) 1.0 X10^3/uL (1.3-2.9) L 10/12/18 04:32 [place] # (Auto) 0.6 x10^3/uL (0.3-0.8) 10/12/18 04:32 Eos # (Auto) 0.1 x10^3/uL (0.0-0.2) 10/12/18 04:32 Baso # (Auto) 0.0 X10^3/uL (0.0-0.1) 10/12/18 04:32 Absolute Nucleated RBC 0.1 /100WBC 10/12/18 04:32 Plt Morphology Comment Normal (NORMAL) 10/12/18 04:32 RBC Morphology Abnormal (NORMAL) 10/12/18 04:32 Hypochromasia 2+ A 10/12/18 04:32 Anisocytosis Slight A 10/11/18 05:08 Microcytosis 1+ A 10/12/18 04:32 Ovalocytes Present 10/11/18 05:08 ESR 104 MM/HOUR (0-15) H 10/09/18 16:16 Sodium 137 mmol/L (136-145) 10/12/18 04:32 Corrected Sodium 138 mmol/L (136-145) 10/12/18 04:32 Potassium 3.6 mmol/L (3.5-5.1) 10/12/18 04:32 Chloride 106 mmol/L (98-107) 10/12/18 04:32 Carbon Dioxide 20.2 mmol/L (21-32) L 10/12/18 04:32 BUN 8 mg/dL (7-18) 10/12/18 04:32 Creatinine 1.02 mg/dL (0.70-1.30) 10/12/18 04:32 Est GFR (MDRD) Af Amer > 60 (>60) 10/12/18 04:32 Est GFR (MDRD) Non-Af > 60 (>60) 10/12/18 04:32 Glucose 123 mg/dL (65-99) H 10/12/18 04:32 Lactic Acid 1.5 mmol/L (0.4-2.0) 10/09/18 11:41 Uric Acid 3.4 mg/dL (3.5-7.2) L 10/09/18 16:16 Calcium 8.8 mg/dL (8.5-10.1) 10/12/18 04:32 Corrected Calcium 10.7 mg/dL (8.5-10.1) H 10/12/18 04:32 Magnesium 2.0 mg/dL (1.7-2.9) 10/11/18 05:02 Iron 24 ug/dL (50-175) L 10/12/18 10:58 Transferrin 180 mg/dL (202-364) L 10/12/18 10:58 Ferritin 197 ng/mL (26-388) 10/12/18 10:58 Total Bilirubin 0.80 mg/dL (0.2-1.0) 10/12/18 04:32 AST 86 Units/L (15-37) H 10/12/18 04:32 ALT 39 Units/L (12-78) 10/12/18 04:32 Alkaline Phosphatase 355 Units/L (46-116) H 10/12/18 04:32 C-Reactive Protein 104.20 mg/L (0-3.0) H 10/12/18 04:32 Total Protein 7.2 g/dL (6.4-8.2) 10/12/18 04:32 Albumin 1.6 g/dL (3.4-5.0) L 10/12/18 04:32 Globulin 5.6 g/dL (2.5-4.5) H 10/12/18 04:32 Albumin/Globulin Ratio 0.3 Ratio (1.1-2.1) L 10/12/18 04:32 Vitamin B12 1716 pg/mL (193-986) H 10/12/18 10:58 Folate 13.6 ng/mL (>8.6) 10/12/18 10:58 Specimen Type Clean catch urine 10/09/18 16:40 Urine Color Dark yellow (YELLOW) 10/09/18 16:40 Urine Appearance Cloudy (CLEAR) 10/09/18 16:40 Urine pH 6.0 (5.0 - 8.0) 10/09/18 16:40 Ur Specific [place] 1.015 (1.000-1.030) 10/09/18 16:40 Urine Protein 3+ (NEGATIVE) 10/09/18 16:40 Urine Glucose (UA) Negative (NEGATIVE) 10/09/18 16:40 Urine Ketones Negative (NEGATIVE) 10/09/18 16:40 Urine Occult Blood 4+ (NEGATIVE) 10/09/18 16:40 Urine Nitrite Negative (NEGATIVE) 10/09/18 16:40 Urine Bilirubin 2+ (NEGATIVE) 10/09/18 16:40 Urine Urobilinogen 3+ (NORMAL) 10/09/18 16:40 Ur Leukocyte Esterase 1+ (NEGATIVE) 10/09/18 16:40 Urine RBC 5-10 /HPF (NONE SEEN) 10/09/18 16:40 Urine WBC 3-5 /HPF (NONE SEEN) 10/09/18 16:40 Ur Squamous Epith Cells Few /HPF (NEGATIVE) 10/09/18 16:40 Amorphous Sediment 1+ /HPF (NEGATIVE) 10/09/18 16:40 Urine Bacteria Trace /HPF (NEGATIVE) 10/09/18 16:40 Urine Mucus Moderate /HPF (NEGATIVE) 10/09/18 16:40 Ur Culture Indicated? No/not indicated 10/09/18 16:40 Vancomycin Trough 12.7 ug/mL (15-20) L 10/10/18 20:35 Blood Type B POSITIVE 10/12/18 04:32 Antibody Screen Negative 10/12/18 04:32 Crossmatch See Detail 10/12/18 04:32 - Plan (1) Cellulitis of right ankle Status: Acute Plan: IV ANTIBIOTICS, PAIN MANAGEMENT, WOUND CARE, CONTINUE TO MONITOR (2) Septic arthritis of right ankle Status: Acute Qualifiers: Septic arthritis organism: due to unspecified organism Qualified Code(s): M00.9 - Pyogenic arthritis, unspecified
--- NOTE | 2018-10-12 18:15 | PCM.PROG ---
Progress Note - Progress Note for Day of Date of Exam: 10/11/18 - Subjective Subjective: WAS ADMITTED FOR RIGHT ANKLE CELLULITIS, RULE OUT SEPTIC ARTHRITIS. TODAY, HE IS ALERT AND ORIENTED, LYING IN BED ON MORNING ROUNDS. HE CONTINUES WITH PAIN, ERYTHEMA, AND EDEMA TO THE RIGHT ANKLE. HIS VITALS THIS MORNING ARE: 97.9-78-20-97%-137/74. LABS WERE OBTAINED. ABNORMAL LAB VALUES INCLUDE THE FOLLOWING: RBC 3.58, HGB 7.6, HCT 23.4, PLT COUNT 98, CARBON DIOXIDE 20.0, GLUCOSE 107, TOTAL BILI 1.40, AST 47, ALK PHOS 316, ALBUMIN 1.7, POTASSIUM 3.6, MAGNESIUM 2.0. GLOBULIN 5.4. BLOOD AND WOUND CULTURES ARE PENDING. WILL CONSULT WITH PATIENT TOMORROW MORNING. HE IS CURRENTLY RECEIVING IV VANCOMYCIN. WE WILL CONTINUE WITH IV ANTIBIOTICS AND MONITOR FOR INCREASED SWELLING AND ERYTHEMA TODAY. WE WILL REPLACE HIS POTASSIUM WITH THE PROTOCOL. OTHERWISE, WE PLAN TO FOLLOW UP WITH AM LABS AND CONTINUE TO MONITOR. - Past Medical Family Social History Past Med/Fam/Surg Hx: No changes since H&P Allergies: Allergies No Known Drug Allergies Allergy (Verified 10/09/18 09:54) - Review of Systems ROS: No change since H&P - Vital Signs and I&O's Vital Signs: Temperature 98.4 F Pulse Rate [Left Brachial] 65 Pulse Rate [Right Radial] 80 Pulse Rate 90 Respiratory Rate 20 Blood Pressure [Left Arm] 147/83 Blood Pressure 147/71 O2 Sat by Pulse Oximetry 96 Intake and Output: Intake & Output 10/10/18 10/11/18 10/12/18 10/13/18 11:59 11:59 11:59 11:59 Intake Total 1741 / 1741 4585 / 4585 3450 / 3450 170 / 170 Output Total 1200 / 1200 1600 / 1600 2024 / 2024 450 / 450 Balance 541 / 541 2985 / 2985 1425 / 1425 -280 / -280 - Physical Exam Oriented: Normal Eyes: Normal Ear: Normal Nose: Normal Throat: Normal Respiratory: Normal Cardiovascular: Normal. negative: S3, S4, Murmur : Normal Auscultation: Bowel Sounds: Normal Palpation: Normal Tenderness: Normal Skin: Red, Tender, Hot, Wound (RIGHT ANKLE ) Musculoskeletal: Right, Ankle, Swelling, Tender Psychiatric: Normal Mood Description: Calm Affect: Normal Speech Pattern: Clear - Laboratory and Diagnostics Result Diagrams: 10/12/18 04:32 10/12/18 04:32 Labs: 10/12/18 14:20 Ankle - Right Gram Stain - Final 10/09/18 11:41 Blood Blood Culture - Final Methicillin Resis Staph Aureus 10/09/18 14:38 Foot - Right Gram Stain - Final 10/09/18 14:38 Foot - Right Wound Culture - Final Methicillin Resis Staph Aureus 10/09/18 11:00 Blood Blood Culture - Preliminary Laboratory WBC 6.4 X10^3/uL (3.6-10.0) 10/12/18 04:32 RBC 3.50 X10^6/uL (4.7-6.0) L 10/12/18 04:32 Hgb 7.5 g/dL (13.5-18.0) L 10/12/18 04:32 Hct 23.1 % (42.0-54.0) L 10/12/18 04:32 MCV 66.0 fL (80.0-100.0) L 10/12/18 04:32 MCH 21.4 pg (27.0-34.0) L 10/12/18 04:32 MCHC 32.4 g/dL (33.0-35.0) L 10/12/18 04:32 RDW 17.8 % (11.6-16.5) H 10/12/18 04:32 Plt Count 101 X10^3/uL (150.0-450.0) L 10/12/18 04:32 Plt Count Comment Decreased (ADEQUATE) 10/12/18 04:32 MPV 8.5 fL (7.4-11.0) 10/12/18 04:32 Neut % (Auto) 71.9 % (42.0-75.0) 10/12/18 04:32 Lymph % (Auto) 15.9 % (21.0-51.0) L 10/12/18 04:32 [place] % (Auto) 9.3 % (0.0-13.0) 10/12/18 04:32 Eos % (Auto) 2.3 % (0.9-2.9) 10/12/18 04:32 Baso % (Auto) 0.6 % (0.2-1.0) 10/12/18 04:32 Neut # (Auto) 4.6 x10^3/uL (2.2-4.8) 10/12/18 04:32 Lymph # (Auto) 1.0 X10^3/uL (1.3-2.9) L 10/12/18 04:32 [place] # (Auto) 0.6 x10^3/uL (0.3-0.8) 10/12/18 04:32 Eos # (Auto) 0.1 x10^3/uL (0.0-0.2) 10/12/18 04:32 Baso # (Auto) 0.0 X10^3/uL (0.0-0.1) 10/12/18 04:32 Absolute Nucleated RBC 0.1 /100WBC 10/12/18 04:32 Plt Morphology Comment Normal (NORMAL) 10/12/18 04:32 RBC Morphology Abnormal (NORMAL) 10/12/18 04:32 Hypochromasia 2+ A 10/12/18 04:32 Anisocytosis Slight A 10/11/18 05:08 Microcytosis 1+ A 10/12/18 04:32 Ovalocytes Present 10/11/18 05:08 ESR 104 MM/HOUR (0-15) H 10/09/18 16:16 Sodium 137 mmol/L (136-145) 10/12/18 04:32 Corrected Sodium 138 mmol/L (136-145) 10/12/18 04:32 Potassium 3.6 mmol/L (3.5-5.1) 10/12/18 04:32 Chloride 106 mmol/L (98-107) 10/12/18 04:32 Carbon Dioxide 20.2 mmol/L (21-32) L 10/12/18 04:32 BUN 8 mg/dL (7-18) 10/12/18 04:32 Creatinine 1.02 mg/dL (0.70-1.30) 10/12/18 04:32 Est GFR (MDRD) Af Amer > 60 (>60) 10/12/18 04:32 Est GFR (MDRD) Non-Af > 60 (>60) 10/12/18 04:32 Glucose 123 mg/dL (65-99) H 10/12/18 04:32 Lactic Acid 1.5 mmol/L (0.4-2.0) 10/09/18 11:41 Uric Acid 3.4 mg/dL (3.5-7.2) L 10/09/18 16:16 Calcium 8.8 mg/dL (8.5-10.1) 10/12/18 04:32 Corrected Calcium 10.7 mg/dL (8.5-10.1) H 10/12/18 04:32 Magnesium 2.0 mg/dL (1.7-2.9) 10/11/18 05:02 Iron 24 ug/dL (50-175) L 10/12/18 10:58 Transferrin 180 mg/dL (202-364) L 10/12/18 10:58 Ferritin 197 ng/mL (26-388) 10/12/18 10:58 Total Bilirubin 0.80 mg/dL (0.2-1.0) 10/12/18 04:32 AST 86 Units/L (15-37) H 10/12/18 04:32 ALT 39 Units/L (12-78) 10/12/18 04:32 Alkaline Phosphatase 355 Units/L (46-116) H 10/12/18 04:32 C-Reactive Protein 104.20 mg/L (0-3.0) H 10/12/18 04:32 Total Protein 7.2 g/dL (6.4-8.2) 10/12/18 04:32 Albumin 1.6 g/dL (3.4-5.0) L 10/12/18 04:32 Globulin 5.6 g/dL (2.5-4.5) H 10/12/18 04:32 Albumin/Globulin Ratio 0.3 Ratio (1.1-2.1) L 10/12/18 04:32 Vitamin B12 1716 pg/mL (193-986) H 10/12/18 10:58 Folate 13.6 ng/mL (>8.6) 10/12/18 10:58 Specimen Type Clean catch urine 10/09/18 16:40 Urine Color Dark yellow (YELLOW) 10/09/18 16:40 Urine Appearance Cloudy (CLEAR) 10/09/18 16:40 Urine pH 6.0 (5.0 - 8.0) 10/09/18 16:40 Ur Specific [place] 1.015 (1.000-1.030) 10/09/18 16:40 Urine Protein 3+ (NEGATIVE) 10/09/18 16:40 Urine Glucose (UA) Negative (NEGATIVE) 10/09/18 16:40 Urine Ketones Negative (NEGATIVE) 10/09/18 16:40 Urine Occult Blood 4+ (NEGATIVE) 10/09/18 16:40 Urine Nitrite Negative (NEGATIVE) 10/09/18 16:40 Urine Bilirubin 2+ (NEGATIVE) 10/09/18 16:40 Urine Urobilinogen 3+ (NORMAL) 10/09/18 16:40 Ur Leukocyte Esterase 1+ (NEGATIVE) 10/09/18 16:40 Urine RBC 5-10 /HPF (NONE SEEN) 10/09/18 16:40 Urine WBC 3-5 /HPF (NONE SEEN) 10/09/18 16:40 Ur Squamous Epith Cells Few /HPF (NEGATIVE) 10/09/18 16:40 Amorphous Sediment 1+ /HPF (NEGATIVE) 10/09/18 16:40 Urine Bacteria Trace /HPF (NEGATIVE) 10/09/18 16:40 Urine Mucus Moderate /HPF (NEGATIVE) 10/09/18 16:40 Ur Culture Indicated? No/not indicated 10/09/18 16:40 Vancomycin Trough 12.7 ug/mL (15-20) L 10/10/18 20:35 Blood Type B POSITIVE 10/12/18 04:32 Antibody Screen Negative 10/12/18 04:32 Crossmatch See Detail 10/12/18 04:32 - Plan (1) Cellulitis of right ankle Status: Acute Plan: IV ANTIBIOTICS, PAIN MANAGEMENT, WOUND CARE, CONTINUE TO MONITOR (2) Septic arthritis of right ankle Status: Acute Qualifiers: Septic arthritis organism: due to unspecified organism Qualified Code(s): M00.9 - Pyogenic arthritis, unspecified (3) Hypokalemia Status: Acute Plan: POTASSIUM REPLACEMENT PER PROTOCOL
--- NOTE | 2018-10-12 18:54 | PCM.PROG ---
Progress Note - Progress Note for Day of Date of Exam: 10/12/18 - Subjective Subjective: WAS ADMITTED FOR RIGHT ANKLE CELLULITIS AND SEPTIC ARTHRITIS. TODAY, HE IS ALERT AND ORIENTED, LYING IN BED ON MORNING ROUNDS. HE CONTINUES WITH PAIN, ERYTHEMA, AND EDEMA TO THE RIGHT ANKLE. HIS VITALS THIS MORNING ARE: 98.1-84-20-97%-127/71. LABS WERE OBTAINED. ABNORMAL LAB VALUES IN CLUDE THE FOLLOWING: RBC 3.50, HGB 7.5, HCT 23.1, PLT COUNT 101, CARBON DIOXIDE 20.2, GLUCOSE 123, IRON 24, TRANSFERRIN 180, AST 86, ALK PHOS 355, CRP 104.20, ALBUMIN 1.6, GLOBULIN 5.6. BLOOD AND WOUND CULTURES REPORT GROWTH OF MRSA. HE IS CURRENTLY RECEIVING IV VANCOMYCIN. WE WILL CONTINUE WITH IV ANTIBIOTICS. CONSULTED WITH PATIENT AND PLANS TO TAKE HIM TO THE OR THIS MORNING FOR I&D. WE ARE IN AGREEMENT WITH PLAN. WE WILL TRANSFUSE HIM WITH TWO UNITS OF PACKED RED BLOOD CELLS TODAY AND START ALBUMIN 25% IV DAILY. OTHERWISE, WE PLAN TO FOLLOW UP WITH AM LABS AND CONTINUE TO MONITOR. - Past Medical Family Social History Past Med/Fam/Surg Hx: No changes since H&P Allergies: Allergies No Known Drug Allergies Allergy (Verified 10/09/18 09:54) - Review of Systems ROS: No change since H&P - Vital Signs and I&O's Vital Signs: Temperature 98.4 F Pulse Rate [Left Brachial] 78 Pulse Rate [Right Radial] 80 Pulse Rate 90 Respiratory Rate 20 Blood Pressure [Left Arm] 117/70 Blood Pressure 147/71 O2 Sat by Pulse Oximetry 98 Intake and Output: Intake & Output 10/10/18 10/11/18 10/12/18 10/13/18 11:59 11:59 11:59 11:59 Intake Total 1741 / 1741 4585 / 4585 3450 / 3450 170 / 170 Output Total 1200 / 1200 1600 / 1600 2024 450 / 450 Balance 541 / 541 2985 / 2985 1425 / 1425 -280 / -280 - Physical Exam Oriented: Normal Eyes: Normal Ear: Normal Nose: Normal Throat: Normal Respiratory: Normal Cardiovascular: Normal. negative: S3, S4, Murmur : Normal Auscultation: Bowel Sounds: Normal Palpation: Normal Tenderness: Normal Skin: Red, Tender, Hot, Wound (RIGHT ANKLE ) Musculoskeletal: Right, Ankle, Swelling, Tender Psychiatric: Normal Mood Description: Calm Affect: Normal Speech Pattern: Clear - Laboratory and Diagnostics Result Diagrams: 10/12/18 04:32 10/12/18 04:32 Labs: 10/12/18 14:20 Ankle - Right Gram Stain - Final 10/09/18 11:41 Blood Blood Culture - Final Methicillin Resis Staph Aureus 10/09/18 14:38 Foot - Right Gram Stain - Final 10/09/18 14:38 Foot - Right Wound Culture - Final Methicillin Resis Staph Aureus 10/09/18 11:00 Blood Blood Culture - Preliminary Laboratory WBC 6.4 X10^3/uL (3.6-10.0) 10/12/18 04:32 RBC 3.50 X10^6/uL (4.7-6.0) L 10/12/18 04:32 Hgb 7.5 g/dL (13.5-18.0) L 10/12/18 04:32 Hct 23.1 % (42.0-54.0) L 10/12/18 04:32 MCV 66.0 fL (80.0-100.0) L 10/12/18 04:32 MCH 21.4 pg (27.0-34.0) L 10/12/18 04:32 MCHC 32.4 g/dL (33.0-35.0) L 10/12/18 04:32 RDW 17.8 % (11.6-16.5) H 10/12/18 04:32 Plt Count 101 X10^3/uL (150.0-450.0) L 10/12/18 04:32 Plt Count Comment Decreased (ADEQUATE) 10/12/18 04:32 MPV 8.5 fL (7.4-11.0) 10/12/18 04:32 Neut % (Auto) 71.9 % (42.0-75.0) 10/12/18 04:32 Lymph % (Auto) 15.9 % (21.0-51.0) L 10/12/18 04:32 [place] % (Auto) 9.3 % (0.0-13.0) 10/12/18 04:32 Eos % (Auto) 2.3 % (0.9-2.9) 10/12/18 04:32 Baso % (Auto) 0.6 % (0.2-1.0) 10/12/18 04:32 Neut # (Auto) 4.6 x10^3/uL (2.2-4.8) 10/12/18 04:32 Lymph # (Auto) 1.0 X10^3/uL (1.3-2.9) L 10/12/18 04:32 [place] # (Auto) 0.6 x10^3/uL (0.3-0.8) 10/12/18 04:32 Eos # (Auto) 0.1 x10^3/uL (0.0-0.2) 10/12/18 04:32 Baso # (Auto) 0.0 X10^3/uL (0.0-0.1) 10/12/18 04:32 Absolute Nucleated RBC 0.1 /100WBC 10/12/18 04:32 Plt Morphology Comment Normal (NORMAL) 10/12/18 04:32 RBC Morphology Abnormal (NORMAL) 10/12/18 04:32 Hypochromasia 2+ A 10/12/18 04:32 Anisocytosis Slight A 10/11/18 05:08 Microcytosis 1+ A 10/12/18 04:32 Ovalocytes Present 10/11/18 05:08 ESR 104 MM/HOUR (0-15) H 10/09/18 16:16 Sodium 137 mmol/L (136-145) 10/12/18 04:32 Corrected Sodium 138 mmol/L (136-145) 10/12/18 04:32 Potassium 3.6 mmol/L (3.5-5.1) 10/12/18 04:32 Chloride 106 mmol/L (98-107) 10/12/18 04:32 Carbon Dioxide 20.2 mmol/L (21-32) L 10/12/18 04:32 BUN 8 mg/dL (7-18) 10/12/18 04:32 Creatinine 1.02 mg/dL (0.70-1.30) 10/12/18 04:32 Est GFR (MDRD) Af Amer > 60 (>60) 10/12/18 04:32 Est GFR (MDRD) Non-Af > 60 (>60) 10/12/18 04:32 Glucose 123 mg/dL (65-99) H 10/12/18 04:32 Lactic Acid 1.5 mmol/L (0.4-2.0) 10/09/18 11:41 Uric Acid 3.4 mg/dL (3.5-7.2) L 10/09/18 16:16 Calcium 8.8 mg/dL (8.5-10.1) 10/12/18 04:32 Corrected Calcium 10.7 mg/dL (8.5-10.1) H 10/12/18 04:32 Magnesium 2.0 mg/dL (1.7-2.9) 10/11/18 05:02 Iron 24 ug/dL (50-175) L 10/12/18 10:58 Transferrin 180 mg/dL (202-364) L 10/12/18 10:58 Ferritin 197 ng/mL (26-388) 10/12/18 10:58 Total Bilirubin 0.80 mg/dL (0.2-1.0) 10/12/18 04:32 AST 86 Units/L (15-37) H 10/12/18 04:32 ALT 39 Units/L (12-78) 10/12/18 04:32 Alkaline Phosphatase 355 Units/L (46-116) H 10/12/18 04:32 C-Reactive Protein 104.20 mg/L (0-3.0) H 10/12/18 04:32 Total Protein 7.2 g/dL (6.4-8.2) 10/12/18 04:32 Albumin 1.6 g/dL (3.4-5.0) L 10/12/18 04:32 Globulin 5.6 g/dL (2.5-4.5) H 10/12/18 04:32 Albumin/Globulin Ratio 0.3 Ratio (1.1-2.1) L 10/12/18 04:32 Vitamin B12 1716 pg/mL (193-986) H 10/12/18 10:58 Folate 13.6 ng/mL (>8.6) 10/12/18 10:58 Specimen Type Clean catch urine 10/09/18 16:40 Urine Color Dark yellow (YELLOW) 10/09/18 16:40 Urine Appearance Cloudy (CLEAR) 10/09/18 16:40 Urine pH 6.0 (5.0 - 8.0) 10/09/18 16:40 Ur Specific [place] 1.015 (1.000-1.030) 10/09/18 16:40 Urine Protein 3+ (NEGATIVE) 10/09/18 16:40 Urine Glucose (UA) Negative (NEGATIVE) 10/09/18 16:40 Urine Ketones Negative (NEGATIVE) 10/09/18 16:40 Urine Occult Blood 4+ (NEGATIVE) 10/09/18 16:40 Urine Nitrite Negative (NEGATIVE) 10/09/18 16:40 Urine Bilirubin 2+ (NEGATIVE) 10/09/18 16:40 Urine Urobilinogen 3+ (NORMAL) 10/09/18 16:40 Ur Leukocyte Esterase 1+ (NEGATIVE) 10/09/18 16:40 Urine RBC 5-10 /HPF (NONE SEEN) 10/09/18 16:40 Urine WBC 3-5 /HPF (NONE SEEN) 10/09/18 16:40 Ur Squamous Epith Cells Few /HPF (NEGATIVE) 10/09/18 16:40 Amorphous Sediment 1+ /HPF (NEGATIVE) 10/09/18 16:40 Urine Bacteria Trace /HPF (NEGATIVE) 10/09/18 16:40 Urine Mucus Moderate /HPF (NEGATIVE) 10/09/18 16:40 Ur Culture Indicated? No/not indicated 10/09/18 16:40 Vancomycin Trough 12.7 ug/mL (15-20) L 10/10/18 20:35 Blood Type B POSITIVE 10/12/18 04:32 Antibody Screen Negative 10/12/18 04:32 Crossmatch See Detail 10/12/18 04:32 - Plan (1) Cellulitis of right ankle Status: Acute Plan: IV ANTIBIOTICS, PAIN MANAGEMENT, WOUND CARE, CONTINUE TO MONITOR (2) Septic arthritis of right ankle Status: Acute Qualifiers: Septic arthritis organism: staphylococcal Qualified Code(s): M00.071 - Staphylococcal arthritis, right ankle and foot Plan: IV ANTIBIOITICS, CONTINUE TO MONITOR (3) Hypokalemia Status: Acute Plan: POTASSIUM REPLACEMENT PER PROTOCOL (4) Anemia Status: Acute Qualifiers: Anemia type: iron deficiency Iron deficiency anemia type: chronic blood loss Qualified Code(s): D50.0 - Iron deficiency anemia secondary to blood loss (chronic) Plan: TRANSFUSE TWO UNITS PRBC, CONTINUE TO MONITOR (5) Hypoalbuminemia Status: Acute Plan: ALBUMIN 25% IV DAILY, CONTINUE TO MONITOR
[2018-10-12] MEDS: RESTORIL CAP 15 MG PO PRN (20:58)
[2018-10-12] MEDS: ALBUMIN HUMAN 25%- 100 ML 100 ML IV SCH (20:58)
[2018-10-12 21:32] LABS: CREATININE 0.92 mg/dL (0.70-1.30); VANCOMYCIN,TROUGH 10.1 ug/mL (15-20)
[2018-10-12] MEDS ORDERED: NS 250 ML IV 250 ML ONE (23:20)
[2018-10-13] MEDS: MOTRIN TAB 600 MG PO PRN ×2 (00:42→22:05)
[2018-10-13] MEDS: NS 1000 ML 1,000 ML IV SCH ×2 (03:23→13:51)
[2018-10-13] MEDS: MORPHINE SULFATE INJ 4 MG IVP PRN (03:26)
[2018-10-13 03:31] LABS: BASOPHILS % (AUTO) 0.7 % (0.2-1.0); EOSINOPHILS # (AUTO) 0.1 x10^3/uL (0.0-0.2); EOSINOPHILS % (AUTO) 1.5 % (0.9-2.9); HEMATOCRIT 25.7 % (42.0-54.0); HEMOGLOBIN 8.4 g/dL (13.5-18.0); LYMPHOCYTES # (AUTO) 0.8 X10^3/uL (1.3-2.9); LYMPHOCYTES % (AUTO) 13.5 % (21.0-51.0); MEAN CORPUSCULAR HEMOGLOBIN 22.3 pg (27.0-34.0); MEAN CORPUSCULAR HGB CONC 32.6 g/dL (33.0-35.0); MEAN CORPUSCULAR VOLUME 68.4 fL (80.0-100.0); MEAN PLATELET VOLUME 8.1 fL (7.4-11.0); MONOCYTES # (AUTO) 0.5 x10^3/uL (0.3-0.8); MONOCYTES % (AUTO) 7.9 % (0.0-13.0); NEUTROPHILS # (AUTO) 4.7 x10^3/uL (2.2-4.8); NEUTROPHILS % (AUTO) 76.4 % (42.0-75.0); PLATELET COUNT 105 X10^3/uL (150.0-450.0); RED BLOOD COUNT 3.76 X10^6/uL (4.7-6.0); WHITE BLOOD COUNT 6.2 X10^3/uL (3.6-10.0)
[2018-10-13 03:37] LABS: ANISOCYTOSIS 1+; HYPOCHROMASIA 1+; MICROCYTOSIS 1+; PLATELET MORPHOLOGY COMMENT NORMAL (NORMAL)
[2018-10-13 03:38] LABS: ALANINE AMINOTRANSFERASE 62 Units/L (12-78); ALKALINE PHOSPHATASE 340 Units/L (46-116); ASPARTATE AMINO TRANSFERASE 106 Units/L (15-37); BLOOD UREA NITROGEN 8 mg/dL (7-18); CALCIUM 9.1 mg/dL (8.5-10.1); CARBON DIOXIDE 20.7 mmol/L (21-32); CHLORIDE 104 mmol/L (98-107); COR CA(FOR HYPOALB) 10.7 mg/dL (8.5-10.1); CREATININE 0.98 mg/dL (0.70-1.30); SODIUM 134 mmol/L (136-145); TOTAL PROTEIN 7.6 g/dL (6.4-8.2); eGFR NON BLACK RACES > 60 (>60)
[2018-10-13] MEDS: VANCOMYCIN HCL 1 GM VIAL 1 G in D5W 250 ML IV 250 ML IV SCH ×3 (05:08→22:00)
[2018-10-13] MEDS: TORADOL 30 MG VIAL IVP PRN (06:32)
[2018-10-13] MEDS: ALBUMIN HUMAN 25%- 100 ML 100 ML IV SCH (09:20)
[2018-10-13] MEDS: PriLOSEC PO SCH (09:21)
[2018-10-13] MEDS: ZESTRIL TAB 10 MG PO SCH (09:21)
[2018-10-13] MEDS: LYRICA CAP 100 MG PO SCH (09:21)
[2018-10-13] MEDS ORDERED: BACITRACIN ONE (09:35)
[2018-10-13] MEDS ORDERED: [UNRECOGNIZED DRUG - OTHER] ONE (09:35)
[2018-10-13] MEDS: ROXICODONE TAB 15 MG PO PRN ×2 (10:43→18:25)
[2018-10-13] MEDS ORDERED: DIPRIVAN VIAL ONE (11:08)
[2018-10-13] MEDS ORDERED: VERSED ONE (11:08)
[2018-10-13] MEDS ORDERED: BACITRACIN VIAL ONE (13:47)
[2018-10-13] MEDS ORDERED: LR 1000 ML IV 1,000 ML ONE (15:17)
[2018-10-13] MEDS ORDERED: XYLOCAINE 1 % (PLAIN) ONE (15:25)
--- NOTE | 2018-10-13 15:44 | OR.GENERIC ---
Post-Op Note Generic - Post-Op Note Operative Report: I&D of another abscess on the lateral aspect of the foot was done . irrigated and packed with Iodoform . Pt did well . EBL 10 cc . same IV ATB and local care .
[2018-10-13] MEDS: NICOTINE PATCH TD SCH (15:58)
--- NOTE | 2018-10-13 17:25 | MRI ---
MRI right ankle without and with contrast Indication: Chronic ankle wound Comparison: Radiographs 10/09/2018 Technique: Multiplanar, multisequence MR images of the right ankle were obtained without and with IV gadolinium contrast (8 mL). Findings: There is soft tissue wound along the medial ankle. Underlying this wound there is a peripherally enhancing collection that measures 3.1 x 1.6 cm in maximum coronal dimension (image 9, series 1001) and approximately 2.4 cm in AP dimension (image 19, series 501). There is questionable continuity of this collection with the tibiotalar joint (for example post-contrast images 9 and 10, series 1001). There is additional collection along the lateral ankle measuring 3.8 x 1.0 cm in maximum coronal dimension (image 16, series 1001) and approximately 3.3 cm in AP dimension (image 18, series 401). Additionally, there is questionable continuity of this collection with the tibiotalar joint space as well (for example coronal postcontrast images 15 through 17). Multiple foci of soft tissue susceptibility within the medial ankle are compatible with surgical clips, which can be seen on the radiograph. There is moderate to severe tibiotalar degenerative change with moderate-sized joint effusion. Moderate subtalar degenerative changes are present. There is chronic appearing bone loss of the calcaneus with convex inferior margin, suggestive for postsurgical change. There is no significant alteration of the normal hyperintense T1 marrow signal or postcontrast enhancement to suggest osteomyelitis. The Achilles, peroneal, posterior compartment, and anterior compartment tendons are grossly intact. There is subcutaneous edema of the visualized dorsal foot. Mild to moderate midfoot degenerative changes are noted. Impression: Medial ankle soft tissue wound, with peripherally enhancing collections overlying the bilateral malleoli, suggestive for abscess. There is questionable continuity of these collections with the tibiotalar joint space, with associated joint effusion. Early septic arthritis cannot be excluded, although the tibiotalar subcortical bone is grossly intact. Marked tibiotalar and subtalar degenerative changes. No convincing active osteomyelitis. Nonspecific dorsal foot subcutaneous edema, suggesting cellulitis. Reported By:
[2018-10-13] MEDS: PROCALAMINE 3 % 1,000 ML IV SCH (20:07)
[2018-10-13] MEDS ORDERED: PHARMACY COMMENT IV NR (21:30)
[2018-10-14 05:33] LABS: BASOPHILS % (AUTO) 0.9 % (0.2-1.0); EOSINOPHILS # (AUTO) 0.1 x10^3/uL (0.0-0.2); EOSINOPHILS % (AUTO) 2.4 % (0.9-2.9); HEMATOCRIT 25.8 % (42.0-54.0); HEMOGLOBIN 8.3 g/dL (13.5-18.0); LYMPHOCYTES # (AUTO) 0.8 X10^3/uL (1.3-2.9); LYMPHOCYTES % (AUTO) 17.1 % (21.0-51.0); MEAN CORPUSCULAR HEMOGLOBIN 22.5 pg (27.0-34.0); MEAN CORPUSCULAR HGB CONC 32.1 g/dL (33.0-35.0); MEAN CORPUSCULAR VOLUME 69.9 fL (80.0-100.0); MEAN PLATELET VOLUME 8.6 fL (7.4-11.0); MONOCYTES # (AUTO) 0.4 x10^3/uL (0.3-0.8); MONOCYTES % (AUTO) 7.8 % (0.0-13.0); NEUTROPHILS # (AUTO) 3.4 x10^3/uL (2.2-4.8); NEUTROPHILS % (AUTO) 71.8 % (42.0-75.0); PLATELET COUNT 135 X10^3/uL (150.0-450.0); RED BLOOD COUNT 3.69 X10^6/uL (4.7-6.0); RED CELL DISTRIBUTION WIDTH 22.6 % (11.6-16.5); WHITE BLOOD COUNT 4.8 X10^3/uL (3.6-10.0)
[2018-10-14 05:51] LABS: ALANINE AMINOTRANSFERASE 43 Units/L (12-78); ALBUMIN 1.9 g/dL (3.4-5.0); ALKALINE PHOSPHATASE 252 Units/L (46-116); ASPARTATE AMINO TRANSFERASE 53 Units/L (15-37); BLOOD UREA NITROGEN 13 mg/dL (7-18); CALCIUM 8.6 mg/dL (8.5-10.1); CARBON DIOXIDE 20.8 mmol/L (21-32); CHLORIDE 106 mmol/L (98-107); COR CA(FOR HYPOALB) 10.3 mg/dL (8.5-10.1); CREATININE 0.79 mg/dL (0.70-1.30); SODIUM 136 mmol/L (136-145); TOTAL PROTEIN 7.3 g/dL (6.4-8.2); eGFR NON BLACK RACES > 60 (>60)
[2018-10-14 05:53] LABS: ANISOCYTOSIS 2+; HYPOCHROMASIA 1+; MICROCYTOSIS 1+; PLATELET MORPHOLOGY COMMENT NORMAL (NORMAL)
[2018-10-14 05:59] LABS: CREATININE 0.76 mg/dL (0.70-1.30); VANCOMYCIN,TROUGH 15.6 ug/mL (15-20)
[2018-10-14] MEDS: NS 1000 ML 1,000 ML IV SCH ×4 (06:12→20:38)
[2018-10-14] MEDS: VANCOMYCIN HCL 1 GM VIAL 1 G in D5W 250 ML IV 250 ML IV SCH ×3 (06:12→21:00)
[2018-10-14] MEDS: MOTRIN TAB 600 MG PO PRN ×2 (06:13→14:25)
[2018-10-14 06:19] LABS: ERYTHROCYTE SEDIMENTATION RATE 96 MM/HOUR (0-15)
[2018-10-14] MEDS: ALBUMIN HUMAN 25%- 100 ML 100 ML IV SCH (08:22)
[2018-10-14] MEDS: ZESTRIL TAB 10 MG PO SCH (08:22)
[2018-10-14] MEDS: PriLOSEC PO SCH (08:23)
[2018-10-14] MEDS: ROXICODONE TAB 15 MG PO PRN ×2 (08:23→17:01)
[2018-10-14] MEDS: LYRICA CAP 100 MG PO SCH (08:23)
[2018-10-14] MEDS: NICOTINE PATCH TD SCH (08:23)
[2018-10-14] MEDS: TORADOL 30 MG VIAL IVP PRN ×2 (10:37→20:22)
--- NOTE | 2018-10-14 10:44 | DR.PROGNOT ---
Hospital Progress Notes - Progress Note for Day of: Progress Note Date: 10/14/18 - Chief Complaint Chief Complaint: Post op I&D of Rt ankle abscesses on medial and lateral malleolus . still having moderate drainage . C&S showed MRSA ( on Vancomycin already ). having low grade fever . - Past Medical Family Social History Past Med/Fam/Surg Hx: No changes since H&P Allergies: Allergies No Known Drug Allergies Allergy (Verified 10/09/18 09:54) - Review Of Systems ROS: No change since H&P - Vital Signs Vital Signs: Temperature 98.1 F Pulse Rate [Left Brachial] 64 Pulse Rate [Right Radial] 80 Pulse Rate 90 Respiratory Rate 18 Blood Pressure [Left Arm] 121/64 Blood Pressure 147/71 O2 Sat by Pulse Oximetry 97 - Physical Exam Oriented: Normal Eyes: Normal Ear: Normal Nose: Normal Throat: Normal Respiratory: Normal Cardiovascular: Normal. negative: S3, S4, Murmur : Normal GI:Auscultation: Normal GI:Palpation: Normal GI: Tenderness: Normal Skin: Red, Tender, Hot, Wound (.skin around the Rt ankle with moderate erythema and edema but better than before .) Musculoskeletal: Right, Ankle, Swelling, Tender Psychiatric: Normal Mood Description: Calm Affect: Normal Speech Pattern: Clear, Appropriate - Laboratory and Diagnostics Result Diagrams: 10/14/18 05:14 10/14/18 05:30 Labs: 10/12/18 14:20 Ankle - Right Gram Stain - Final 10/12/18 14:20 Ankle - Right Wound Culture - Preliminary 10/09/18 11:41 Blood Blood Culture - Final Methicillin Resis Staph Aureus 10/09/18 14:38 Foot - Right Gram Stain - Final 10/09/18 14:38 Foot - Right Wound Culture - Final Methicillin Resis Staph Aureus 10/09/18 11:00 Blood Blood Culture - Preliminary Laboratory WBC 4.8 X10^3/uL (3.6-10.0) 10/14/18 05:14 RBC 3.69 X10^6/uL (4.7-6.0) L 10/14/18 05:14 Hgb 8.3 g/dL (13.5-18.0) L 10/14/18 05:14 Hct 25.8 % (42.0-54.0) L 10/14/18 05:14 MCV 69.9 fL (80.0-100.0) L 10/14/18 05:14 MCH 22.5 pg (27.0-34.0) L 10/14/18 05:14 MCHC 32.1 g/dL (33.0-35.0) L 10/14/18 05:14 RDW 22.6 % (11.6-16.5) H 10/14/18 05:14 Plt Count 135 X10^3/uL (150.0-450.0) L 10/14/18 05:14 Plt Count Comment Adequate (ADEQUATE) 10/14/18 05:14 MPV 8.6 fL (7.4-11.0) 10/14/18 05:14 Neut % (Auto) 71.8 % (42.0-75.0) 10/14/18 05:14 Lymph % (Auto) 17.1 % (21.0-51.0) L 10/14/18 05:14 [place] % (Auto) 7.8 % (0.0-13.0) 10/14/18 05:14 Eos % (Auto) 2.4 % (0.9-2.9) 10/14/18 05:14 Baso % (Auto) 0.9 % (0.2-1.0) 10/14/18 05:14 Neut # (Auto) 3.4 x10^3/uL (2.2-4.8) 10/14/18 05:14 Lymph # (Auto) 0.8 X10^3/uL (1.3-2.9) L 10/14/18 05:14 [place] # (Auto) 0.4 x10^3/uL (0.3-0.8) 10/14/18 05:14 Eos # (Auto) 0.1 x10^3/uL (0.0-0.2) 10/14/18 05:14 Baso # (Auto) 0.0 X10^3/uL (0.0-0.1) 10/14/18 05:14 Absolute Nucleated RBC 0.1 /100WBC 10/14/18 05:14 Plt Morphology Comment Normal (NORMAL) 10/14/18 05:14 RBC Morphology Abnormal (NORMAL) 10/14/18 05:14 Hypochromasia 1+ A 10/14/18 05:14 Anisocytosis 2+ A 10/14/18 05:14 Microcytosis 1+ A 10/14/18 05:14 Ovalocytes Present 10/11/18 05:08 ESR 96 MM/HOUR (0-15) H 10/14/18 05:14 Sodium 136 mmol/L (136-145) 10/14/18 05:14 Corrected Sodium TNP 10/14/18 05:14 Potassium 3.9 mmol/L (3.5-5.1) 10/14/18 05:14 Chloride 106 mmol/L (98-107) 10/14/18 05:14 Carbon Dioxide 20.8 mmol/L (21-32) L 10/14/18 05:14 BUN 13 mg/dL (7-18) 10/14/18 05:14 Creatinine 0.76 mg/dL (0.70-1.30) 10/14/18 05:30 Est GFR (MDRD) Af Amer > 60 (>60) 10/14/18 05:14 Est GFR (MDRD) Non-Af > 60 (>60) 10/14/18 05:14 Glucose 97 mg/dL (65-99) 10/14/18 05:14 Lactic Acid 1.5 mmol/L (0.4-2.0) 10/09/18 11:41 Uric Acid 3.4 mg/dL (3.5-7.2) L 10/09/18 16:16 Calcium 8.6 mg/dL (8.5-10.1) 10/14/18 05:14 Corrected Calcium 10.3 mg/dL (8.5-10.1) H 10/14/18 05:14 Magnesium 2.0 mg/dL (1.7-2.9) 10/11/18 05:02 Iron 24 ug/dL (50-175) L 10/12/18 10:58 Transferrin 180 mg/dL (202-364) L 10/12/18 10:58 Ferritin 197 ng/mL (26-388) 10/12/18 10:58 Total Bilirubin 1.10 mg/dL (0.2-1.0) H 10/14/18 05:14 AST 53 Units/L (15-37) H 10/14/18 05:14 ALT 43 Units/L (12-78) 10/14/18 05:14 Alkaline Phosphatase 252 Units/L (46-116) H 10/14/18 05:14 C-Reactive Protein 61.20 mg/L (0-3.0) H 10/14/18 05:14 Total Protein 7.3 g/dL (6.4-8.2) 10/14/18 05:14 Albumin 1.9 g/dL (3.4-5.0) L 10/14/18 05:14 Globulin 5.4 g/dL (2.5-4.5) H 10/14/18 05:14 Albumin/Globulin Ratio 0.4 Ratio (1.1-2.1) L 10/14/18 05:14 Carcinoembryonic Ag 3.1 ng/mL (0.0-3.0) H 10/12/18 04:32 Vitamin B12 1716 pg/mL (193-986) H 10/12/18 10:58 Folate 13.6 ng/mL (>8.6) 10/12/18 10:58 Specimen Type Clean catch urine 10/09/18 16:40 Urine Color Dark yellow (YELLOW) 10/09/18 16:40 Urine Appearance Cloudy (CLEAR) 10/09/18 16:40 Urine pH 6.0 (5.0 - 8.0) 10/09/18 16:40 Ur Specific [place] 1.015 (1.000-1.030) 10/09/18 16:40 Urine Protein 3+ (NEGATIVE) 10/09/18 16:40 Urine Glucose (UA) Negative (NEGATIVE) 10/09/18 16:40 Urine Ketones Negative (NEGATIVE) 10/09/18 16:40 Urine Occult Blood 4+ (NEGATIVE) 10/09/18 16:40 Urine Nitrite Negative (NEGATIVE) 10/09/18 16:40 Urine Bilirubin 2+ (NEGATIVE) 10/09/18 16:40 Urine Urobilinogen 3+ (NORMAL) 10/09/18 16:40 Ur Leukocyte Esterase 1+ (NEGATIVE) 10/09/18 16:40 Urine RBC 5-10 /HPF (NONE SEEN) 10/09/18 16:40 Urine WBC 3-5 /HPF (NONE SEEN) 10/09/18 16:40 Ur Squamous Epith Cells Few /HPF (NEGATIVE) 10/09/18 16:40 Amorphous Sediment 1+ /HPF (NEGATIVE) 10/09/18 16:40 Urine Bacteria Trace /HPF (NEGATIVE) 10/09/18 16:40 Urine Mucus Moderate /HPF (NEGATIVE) 10/09/18 16:40 Ur Culture Indicated? No/not indicated 10/09/18 16:40 Stool Description 200g,brown,formed 10/12/18 19:25 Stl Occult Blood (IFOB) Positive (NEGATIVE) A 10/12/18 19:25 Vancomycin Trough 15.6 ug/mL (15-20) 10/14/18 05:30 Blood Type B POSITIVE 10/12/18 04:32 Antibody Screen Negative 10/12/18 04:32 Crossmatch See Detail 10/12/18 04:32 - Assessment and Plan 1: Rt ankle abscesses both medial and lateral aspect positive for MRSA. on IV Vancomycin and local care with packing and irrigation . anemia . - Problem Patient Problems: Patient Problems Hypokalemia (Acute) E87.6 Anemia (Acute) D64.9 Hypoalbuminemia (Acute) E88.09 Septic arthritis of right ankle (Acute) M00.9 Cellulitis of right ankle (Acute) L03.115
[2018-10-14] MEDS: PROCALAMINE 3 % 1,000 ML IV SCH (20:20)
[2018-10-14] MEDS: RESTORIL CAP 15 MG PO PRN (20:24)
--- NOTE | 2018-10-14 20:48 | PCM.PROG ---
Progress Note - Progress Note for Day of Date of Exam: 10/13/18 - Subjective Subjective: WAS ADMITTED FOR RIGHT ANKLE CELLULITIS, SEPTIC ARTHRITIS, AND ANEMIA. HE RECEIVED TWO UNITS OF PACKED RED BLOOD CELLS YESTERDAY. TODAY, HE IS ALERT AND ORIENTED, LYING IN BED ON MORNING ROUNDS. HE CONTINUES WITH PAIN, ERYTHEMA, AND EDEMA TO THE RIGHT ANKLE. TOOK PATIENT TO THE OR YESTERDAY FOR I&D. WOUND WAS PACKED WITH IODIFORM. HIS VITALS THIS MORNING ARE: 98.8-81-22-96%-110/51. LABS WERE OBTAINED. ABNORMAL LAB VALUES INCLUDE THE FOLLOWING: RBC 3.76, HGB 8.4, HCT 25.7, PLT COUNT 105, CARBON DIOXIDE 20.7, TOTAL BILI 1.40, AST 106, ALK PHOS 340, ALBUMIN 2.0, GLOBULIN 5.6. BLOOD AND WOUND CULTURES REPORT GROWTH OF MRSA. HE IS CURRENTLY RECEIVING IV VANCOMYCIN. WE WILL CONTINUE WITH IV ANTIBIOTICS. CONSULTED WITH PATIENT AND PLANS TO TAKE HIM TO THE OR THIS MORNING FOR I&D. TODAY, WE WILL ADD PROCALAMINE DUE TO PROTEIN DEFICIENCY. OTHERWISE, WE PLAN TO FOLLOW UP WITH AM LABS AND CONTINUE TO MONITOR. - Past Medical Family Social History Past Med/Fam/Surg Hx: No changes since H&P Allergies: Allergies No Known Drug Allergies Allergy (Verified 10/09/18 09:54) - Review of Systems ROS: No change since H&P - Vital Signs and I&O's Vital Signs: Temperature 97.6 F Pulse Rate [Left Brachial] 78 Pulse Rate [Right Radial] 80 Pulse Rate 90 Respiratory Rate 20 Blood Pressure [Left Arm] 121/75 Blood Pressure 147/71 O2 Sat by Pulse Oximetry 98 Intake and Output: Intake & Output 10/12/18 10/13/18 10/14/18 10/15/18 11:59 11:59 11:59 11:59 Intake Total 3450 / 3450 1530 / 1530 2435 / 2435 2643 / 2643 Output Total 2024 / 2099 1974 / 1974 800 / 800 Balance 1425 / 1425 -570 / -570 460 / 460 1843 / 1843 - Physical Exam Oriented: Normal Eyes: Normal Ear: Normal Nose: Normal Throat: Normal Respiratory: Normal Cardiovascular: Normal. negative: S3, S4, Murmur : Normal Auscultation: Bowel Sounds: Normal Palpation: Normal Tenderness: Normal Skin: Red, Tender, Hot, Wound (.skin around the Rt ankle with moderate erythema and edema but better than before .) Musculoskeletal: Right, Ankle, Swelling, Tender Psychiatric: Normal Mood Description: Calm Affect: Normal Speech Pattern: Clear, Appropriate - Laboratory and Diagnostics Result Diagrams: 10/14/18 05:14 10/14/18 05:30 Labs: 10/09/18 11:00 Blood Blood Culture - Final 10/12/18 14:20 Ankle - Right Gram Stain - Final 10/12/18 14:20 Ankle - Right Wound Culture - Preliminary 10/09/18 11:41 Blood Blood Culture - Final Methicillin Resis Staph Aureus 10/09/18 14:38 Foot - Right Gram Stain - Final 10/09/18 14:38 Foot - Right Wound Culture - Final Methicillin Resis Staph Aureus Laboratory WBC 4.8 X10^3/uL (3.6-10.0) 10/14/18 05:14 RBC 3.69 X10^6/uL (4.7-6.0) L 10/14/18 05:14 Hgb 8.3 g/dL (13.5-18.0) L 10/14/18 05:14 Hct 25.8 % (42.0-54.0) L 10/14/18 05:14 MCV 69.9 fL (80.0-100.0) L 10/14/18 05:14 MCH 22.5 pg (27.0-34.0) L 10/14/18 05:14 MCHC 32.1 g/dL (33.0-35.0) L 10/14/18 05:14 RDW 22.6 % (11.6-16.5) H 10/14/18 05:14 Plt Count 135 X10^3/uL (150.0-450.0) L 10/14/18 05:14 Plt Count Comment Adequate (ADEQUATE) 10/14/18 05:14 MPV 8.6 fL (7.4-11.0) 10/14/18 05:14 Neut % (Auto) 71.8 % (42.0-75.0) 10/14/18 05:14 Lymph % (Auto) 17.1 % (21.0-51.0) L 10/14/18 05:14 [place] % (Auto) 7.8 % (0.0-13.0) 10/14/18 05:14 Eos % (Auto) 2.4 % (0.9-2.9) 10/14/18 05:14 Baso % (Auto) 0.9 % (0.2-1.0) 10/14/18 05:14 Neut # (Auto) 3.4 x10^3/uL (2.2-4.8) 10/14/18 05:14 Lymph # (Auto) 0.8 X10^3/uL (1.3-2.9) L 10/14/18 05:14 [place] # (Auto) 0.4 x10^3/uL (0.3-0.8) 10/14/18 05:14 Eos # (Auto) 0.1 x10^3/uL (0.0-0.2) 10/14/18 05:14 Baso # (Auto) 0.0 X10^3/uL (0.0-0.1) 10/14/18 05:14 Absolute Nucleated RBC 0.1 /100WBC 10/14/18 05:14 Plt Morphology Comment Normal (NORMAL) 10/14/18 05:14 RBC Morphology Abnormal (NORMAL) 10/14/18 05:14 Hypochromasia 1+ A 10/14/18 05:14 Anisocytosis 2+ A 10/14/18 05:14 Microcytosis 1+ A 10/14/18 05:14 Ovalocytes Present 10/11/18 05:08 ESR 96 MM/HOUR (0-15) H 10/14/18 05:14 Sodium 136 mmol/L (136-145) 10/14/18 05:14 Corrected Sodium TNP 10/14/18 05:14 Potassium 3.9 mmol/L (3.5-5.1) 10/14/18 05:14 Chloride 106 mmol/L (98-107) 10/14/18 05:14 Carbon Dioxide 20.8 mmol/L (21-32) L 10/14/18 05:14 BUN 13 mg/dL (7-18) 10/14/18 05:14 Creatinine 0.76 mg/dL (0.70-1.30) 10/14/18 05:30 Est GFR (MDRD) Af Amer > 60 (>60) 10/14/18 05:14 Est GFR (MDRD) Non-Af > 60 (>60) 10/14/18 05:14 Glucose 97 mg/dL (65-99) 10/14/18 05:14 Lactic Acid 1.5 mmol/L (0.4-2.0) 10/09/18 11:41 Uric Acid 3.4 mg/dL (3.5-7.2) L 10/09/18 16:16 Calcium 8.6 mg/dL (8.5-10.1) 10/14/18 05:14 Corrected Calcium 10.3 mg/dL (8.5-10.1) H 10/14/18 05:14 Magnesium 2.0 mg/dL (1.7-2.9) 10/11/18 05:02 Iron 24 ug/dL (50-175) L 10/12/18 10:58 Transferrin 180 mg/dL (202-364) L 10/12/18 10:58 Ferritin 197 ng/mL (26-388) 10/12/18 10:58 Total Bilirubin 1.10 mg/dL (0.2-1.0) H 10/14/18 05:14 AST 53 Units/L (15-37) H 10/14/18 05:14 ALT 43 Units/L (12-78) 10/14/18 05:14 Alkaline Phosphatase 252 Units/L (46-116) H 10/14/18 05:14 C-Reactive Protein 61.20 mg/L (0-3.0) H 10/14/18 05:14 Total Protein 7.3 g/dL (6.4-8.2) 10/14/18 05:14 Albumin 1.9 g/dL (3.4-5.0) L 10/14/18 05:14 Globulin 5.4 g/dL (2.5-4.5) H 10/14/18 05:14 Albumin/Globulin Ratio 0.4 Ratio (1.1-2.1) L 10/14/18 05:14 Carcinoembryonic Ag 3.1 ng/mL (0.0-3.0) H 10/12/18 04:32 Vitamin B12 1716 pg/mL (193-986) H 10/12/18 10:58 Folate 13.6 ng/mL (>8.6) 10/12/18 10:58 Specimen Type Clean catch urine 10/09/18 16:40 Urine Color Dark yellow (YELLOW) 10/09/18 16:40 Urine Appearance Cloudy (CLEAR) 10/09/18 16:40 Urine pH 6.0 (5.0 - 8.0) 10/09/18 16:40 Ur Specific [place] 1.015 (1.000-1.030) 10/09/18 16:40 Urine Protein 3+ (NEGATIVE) 10/09/18 16:40 Urine Glucose (UA) Negative (NEGATIVE) 10/09/18 16:40 Urine Ketones Negative (NEGATIVE) 10/09/18 16:40 Urine Occult Blood 4+ (NEGATIVE) 10/09/18 16:40 Urine Nitrite Negative (NEGATIVE) 10/09/18 16:40 Urine Bilirubin 2+ (NEGATIVE) 10/09/18 16:40 Urine Urobilinogen 3+ (NORMAL) 10/09/18 16:40 Ur Leukocyte Esterase 1+ (NEGATIVE) 10/09/18 16:40 Urine RBC 5-10 /HPF (NONE SEEN) 10/09/18 16:40 Urine WBC 3-5 /HPF (NONE SEEN) 10/09/18 16:40 Ur Squamous Epith Cells Few /HPF (NEGATIVE) 10/09/18 16:40 Amorphous Sediment 1+ /HPF (NEGATIVE) 10/09/18 16:40 Urine Bacteria Trace /HPF (NEGATIVE) 10/09/18 16:40 Urine Mucus Moderate /HPF (NEGATIVE) 10/09/18 16:40 Ur Culture Indicated? No/not indicated 10/09/18 16:40 Stool Description 200g,brown,formed 10/12/18 19:25 Stl Occult Blood (IFOB) Positive (NEGATIVE) A 10/12/18 19:25 Vancomycin Trough 15.6 ug/mL (15-20) 10/14/18 05:30 Blood Type B POSITIVE 10/12/18 04:32 Antibody Screen Negative 10/12/18 04:32 Crossmatch See Detail 10/12/18 04:32 - Plan (1) Cellulitis of right ankle Status: Acute Plan: IV ANTIBIOTICS, PAIN MANAGEMENT, STATUS POST I&D, WOUND CARE, CONTINUE TO MONITOR (2) Septic arthritis of right ankle Status: Acute Qualifiers: Septic arthritis organism: staphylococcal Qualified Code(s): M00.071 - Staphylococcal arthritis, right ankle and foot Plan: IV ANTIBIOITICS, CONTINUE TO MONITOR (3) Hypokalemia Status: Acute Plan: POTASSIUM REPLACEMENT PER PROTOCOL (4) Anemia Status: Acute Qualifiers: Anemia type: iron deficiency 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
[2018-10-15] MEDS: ROXICODONE TAB 15 MG PO PRN ×4 (00:01→20:45)
[2018-10-15] MEDS: MOTRIN TAB 600 MG PO PRN ×3 (03:05→18:45)
[2018-10-15] MEDS: NS 1000 ML 1,000 ML IV SCH ×3 (05:15→20:00)
[2018-10-15 05:24] LABS: BASOPHILS % (AUTO) 1.1 % (0.2-1.0); EOSINOPHILS # (AUTO) 0.1 x10^3/uL (0.0-0.2); EOSINOPHILS % (AUTO) 2.2 % (0.9-2.9); HEMATOCRIT 26.5 % (42.0-54.0); HEMOGLOBIN 8.4 g/dL (13.5-18.0); LYMPHOCYTES # (AUTO) 0.7 X10^3/uL (1.3-2.9); LYMPHOCYTES % (AUTO) 18.6 % (21.0-51.0); MEAN CORPUSCULAR HEMOGLOBIN 22.5 pg (27.0-34.0); MEAN CORPUSCULAR HGB CONC 31.8 g/dL (33.0-35.0); MEAN CORPUSCULAR VOLUME 70.6 fL (80.0-100.0); MEAN PLATELET VOLUME 8.8 fL (7.4-11.0); MONOCYTES # (AUTO) 0.3 x10^3/uL (0.3-0.8); MONOCYTES % (AUTO) 8.3 % (0.0-13.0); NEUTROPHILS # (AUTO) 2.7 x10^3/uL (2.2-4.8); NEUTROPHILS % (AUTO) 69.8 % (42.0-75.0); PLATELET COUNT 155 X10^3/uL (150.0-450.0); RED BLOOD COUNT 3.75 X10^6/uL (4.7-6.0); RED CELL DISTRIBUTION WIDTH 22.8 % (11.6-16.5); WHITE BLOOD COUNT 3.9 X10^3/uL (3.6-10.0)
[2018-10-15 05:37] LABS: ALANINE AMINOTRANSFERASE 49 Units/L (12-78); ALBUMIN 2.1 g/dL (3.4-5.0); ALKALINE PHOSPHATASE 260 Units/L (46-116); ASPARTATE AMINO TRANSFERASE 71 Units/L (15-37); BLOOD UREA NITROGEN 13 mg/dL (7-18); CALCIUM 8.3 mg/dL (8.5-10.1); CARBON DIOXIDE 23.1 mmol/L (21-32); CHLORIDE 103 mmol/L (98-107); COR CA(FOR HYPOALB) 9.8 mg/dL (8.5-10.1); CREATININE 0.81 mg/dL (0.70-1.30); SODIUM 135 mmol/L (136-145); TOTAL PROTEIN 7.4 g/dL (6.4-8.2); eGFR NON BLACK RACES > 60 (>60)
[2018-10-15 05:55] LABS: ANISOCYTOSIS 2+; HYPOCHROMASIA 1+; PLATELET MORPHOLOGY COMMENT NORMAL (NORMAL)
[2018-10-15] MEDS: TORADOL 30 MG VIAL IVP PRN (06:00)
[2018-10-15] MEDS: VANCOMYCIN HCL 1 GM VIAL 1 G in D5W 250 ML IV 250 ML IV SCH ×3 (06:08→21:20)
[2018-10-15 06:14] LABS: ERYTHROCYTE SEDIMENTATION RATE 82 MM/HOUR (0-15)
[2018-10-15] MEDS: ALBUMIN HUMAN 25%- 100 ML 100 ML IV SCH (08:46)
[2018-10-15] MEDS: PriLOSEC PO SCH (08:46)
[2018-10-15] MEDS: LYRICA CAP 100 MG PO SCH (08:46)
[2018-10-15] MEDS: ZESTRIL TAB 10 MG PO SCH (08:46)
[2018-10-15] MEDS: NICOTINE PATCH TD SCH (08:46)
--- NOTE | 2018-10-15 12:16 | DR.PROGNOT ---
Hospital Progress Notes - Progress Note for Day of: Progress Note Date: 10/15/18 - Chief Complaint Chief Complaint: still having moderate drainage. no fever now. all packins were removed . swelling and redness are less. C&S showed MRSA ( on Vancomycin already ). . - Past Medical Family Social History Past Med/Fam/Surg Hx: No changes since H&P Allergies: Allergies No Known Drug Allergies Allergy (Verified 10/09/18 09:54) - Review Of Systems ROS: No change since H&P - Vital Signs Vital Signs: Temperature 98.2 F Pulse Rate [Left Brachial] 92 Pulse Rate [Right Radial] 80 Pulse Rate 90 Respiratory Rate 20 Blood Pressure [Left Arm] 133/71 Blood Pressure 147/71 O2 Sat by Pulse Oximetry 96 - Physical Exam Oriented: Normal Eyes: Normal Ear: Normal Nose: Normal Throat: Normal Respiratory: Normal Cardiovascular: Normal. negative: S3, S4, Murmur : Normal GI:Auscultation: Normal GI:Palpation: Normal GI: Tenderness: Normal Skin: Red, Tender, Hot, Wound (.skin around the Rt ankle with moderate erythema and edema but better than before .) Musculoskeletal: Right, Ankle, Swelling, Tender Psychiatric: Normal Mood Description: Calm Affect: Normal Speech Pattern: Clear, Appropriate - Laboratory and Diagnostics Result Diagrams: 10/15/18 04:25 10/15/18 04:25 Labs: 10/12/18 14:20 Ankle - Right Gram Stain - Final 10/12/18 14:20 Ankle - Right Wound Culture - Final Methicillin Resis Staph Aureus 10/09/18 11:00 Blood Blood Culture - Final 10/09/18 11:41 Blood Blood Culture - Final Methicillin Resis Staph Aureus 10/09/18 14:38 Foot - Right Gram Stain - Final 10/09/18 14:38 Foot - Right Wound Culture - Final Methicillin Resis Staph Aureus Laboratory WBC 3.9 X10^3/uL (3.6-10.0) 10/15/18 04:25 RBC 3.75 X10^6/uL (4.7-6.0) L 10/15/18 04:25 Hgb 8.4 g/dL (13.5-18.0) L 10/15/18 04:25 Hct 26.5 % (42.0-54.0) L 10/15/18 04:25 MCV 70.6 fL (80.0-100.0) L 10/15/18 04:25 MCH 22.5 pg (27.0-34.0) L 10/15/18 04:25 MCHC 31.8 g/dL (33.0-35.0) L 10/15/18 04:25 RDW 22.8 % (11.6-16.5) H 10/15/18 04:25 Plt Count 155 X10^3/uL (150.0-450.0) 10/15/18 04:25 Plt Count Comment Adequate (ADEQUATE) 10/15/18 04:25 MPV 8.8 fL (7.4-11.0) 10/15/18 04:25 Neut % (Auto) 69.8 % (42.0-75.0) 10/15/18 04:25 Lymph % (Auto) 18.6 % (21.0-51.0) L 10/15/18 04:25 [place] % (Auto) 8.3 % (0.0-13.0) 10/15/18 04:25 Eos % (Auto) 2.2 % (0.9-2.9) 10/15/18 04:25 Baso % (Auto) 1.1 % (0.2-1.0) H 10/15/18 04:25 Neut # (Auto) 2.7 x10^3/uL (2.2-4.8) 10/15/18 04:25 Lymph # (Auto) 0.7 X10^3/uL (1.3-2.9) L 10/15/18 04:25 [place] # (Auto) 0.3 x10^3/uL (0.3-0.8) 10/15/18 04:25 Eos # (Auto) 0.1 x10^3/uL (0.0-0.2) 10/15/18 04:25 Baso # (Auto) 0.0 X10^3/uL (0.0-0.1) 10/15/18 04:25 Absolute Nucleated RBC 0.0 /100WBC 10/15/18 04:25 Plt Morphology Comment Normal (NORMAL) 10/15/18 04:25 RBC Morphology Abnormal (NORMAL) 10/15/18 04:25 Hypochromasia 1+ A 10/15/18 04:25 Anisocytosis 2+ A 10/15/18 04:25 Microcytosis 1+ A 10/14/18 05:14 Ovalocytes Present 10/11/18 05:08 ESR 82 MM/HOUR (0-15) H 10/15/18 04:25 Sodium 135 mmol/L (136-145) L 10/15/18 04:25 Corrected Sodium TNP 10/15/18 04:25 Potassium 3.9 mmol/L (3.5-5.1) 10/15/18 04:25 Chloride 103 mmol/L (98-107) 10/15/18 04:25 Carbon Dioxide 23.1 mmol/L (21-32) 10/15/18 04:25 BUN 13 mg/dL (7-18) 10/15/18 04:25 Creatinine 0.81 mg/dL (0.70-1.30) 10/15/18 04:25 Est GFR (MDRD) Af Amer > 60 (>60) 10/15/18 04:25 Est GFR (MDRD) Non-Af > 60 (>60) 10/15/18 04:25 Glucose 109 mg/dL (65-99) H 10/15/18 04:25 Lactic Acid 1.5 mmol/L (0.4-2.0) 10/09/18 11:41 Uric Acid 3.4 mg/dL (3.5-7.2) L 10/09/18 16:16 Calcium 8.3 mg/dL (8.5-10.1) L 10/15/18 04:25 Corrected Calcium 9.8 mg/dL (8.5-10.1) 10/15/18 04:25 Magnesium 2.0 mg/dL (1.7-2.9) 10/11/18 05:02 Iron 24 ug/dL (50-175) L 10/12/18 10:58 Transferrin 180 mg/dL (202-364) L 10/12/18 10:58 Ferritin 197 ng/mL (26-388) 10/12/18 10:58 Total Bilirubin 0.80 mg/dL (0.2-1.0) 10/15/18 04:25 AST 71 Units/L (15-37) H 10/15/18 04:25 ALT 49 Units/L (12-78) 10/15/18 04:25 Alkaline Phosphatase 260 Units/L (46-116) H 10/15/18 04:25 C-Reactive Protein 43.70 mg/L (0-3.0) H 10/15/18 04:25 Total Protein 7.4 g/dL (6.4-8.2) 10/15/18 04:25 Albumin 2.1 g/dL (3.4-5.0) L 10/15/18 04:25 Globulin 5.3 g/dL (2.5-4.5) H 10/15/18 04:25 Albumin/Globulin Ratio 0.4 Ratio (1.1-2.1) L 10/15/18 04:25 Carcinoembryonic Ag 3.1 ng/mL (0.0-3.0) H 10/12/18 04:32 Vitamin B12 1716 pg/mL (193-986) H 10/12/18 10:58 Folate 13.6 ng/mL (>8.6) 10/12/18 10:58 Specimen Type Clean catch urine 10/09/18 16:40 Urine Color Dark yellow (YELLOW) 10/09/18 16:40 Urine Appearance Cloudy (CLEAR) 10/09/18 16:40 Urine pH 6.0 (5.0 - 8.0) 10/09/18 16:40 Ur Specific [place] 1.015 (1.000-1.030) 10/09/18 16:40 Urine Protein 3+ (NEGATIVE) 10/09/18 16:40 Urine Glucose (UA) Negative (NEGATIVE) 10/09/18 16:40 Urine Ketones Negative (NEGATIVE) 10/09/18 16:40 Urine Occult Blood 4+ (NEGATIVE) 10/09/18 16:40 Urine Nitrite Negative (NEGATIVE) 10/09/18 16:40 Urine Bilirubin 2+ (NEGATIVE) 10/09/18 16:40 Urine Urobilinogen 3+ (NORMAL) 10/09/18 16:40 Ur Leukocyte Esterase 1+ (NEGATIVE) 10/09/18 16:40 Urine RBC 5-10 /HPF (NONE SEEN) 10/09/18 16:40 Urine WBC 3-5 /HPF (NONE SEEN) 10/09/18 16:40 Ur Squamous Epith Cells Few /HPF (NEGATIVE) 10/09/18 16:40 Amorphous Sediment 1+ /HPF (NEGATIVE) 10/09/18 16:40 Urine Bacteria Trace /HPF (NEGATIVE) 10/09/18 16:40 Urine Mucus Moderate /HPF (NEGATIVE) 10/09/18 16:40 Ur Culture Indicated? No/not indicated 10/09/18 16:40 Stool Description 200g,brown,formed 10/12/18 19:25 Stl Occult Blood (IFOB) Positive (NEGATIVE) A 10/12/18 19:25 Vancomycin Trough 15.6 ug/mL (15-20) 10/14/18 05:30 Blood Type B POSITIVE 10/12/18 04:32 Antibody Screen Negative 10/12/18 04:32 Crossmatch See Detail 10/12/18 04:32 - Assessment and Plan 1: Rt ankle abscesses both medial and lateral aspect positive for MRSA. on IV Vancomycin and local care . old foot injury ,s/p free vascularized flap to the Rt foot. anemia . - Problem Patient Problems: Patient Problems Hypokalemia (Acute) E87.6 Anemia (Acute) D64.9 Hypoalbuminemia (Acute) E88.09 Protein deficiency (Acute) E46 Septic arthritis of right ankle (Acute) M00.9 Cellulitis of right ankle (Acute) L03.115
[2018-10-15 14:12] LABS: CREATININE 0.81 mg/dL (0.70-1.30); VANCOMYCIN,TROUGH 17.2 ug/mL (15-20)
[2018-10-15] MEDS: PROCALAMINE 3 % 1,000 ML IV SCH (20:45)
[2018-10-15] MEDS: RESTORIL CAP 15 MG PO PRN (20:45)
--- NOTE | 2018-10-15 20:57 | PCM.PROG ---
Progress Note - Progress Note for Day of Date of Exam: 10/14/18 - Subjective Subjective: WAS ADMITTED FOR RIGHT ANKLE CELLULITIS, SEPTIC ARTHRITIS, AND ANEMIA. HE RECEIVED TWO UNITS OF PACKED RED BLOOD CELLS on 10/12. HE IS STATUS POST I&D OF ABSCESSES TO THE MEDIAL AND LATERAL ASPECT OF THE RIGHT ANKLE. TODAY, HE IS ALERT AND ORIENTED, LYING IN BED ON MORNING ROUNDS. HE C ONTINUES WITH PAIN, ERYTHEMA, AND EDEMA TO THE RIGHT ANKLE. WOUND IS PACKED WITH IODIFORM. HIS VITALS THIS MORNING ARE: 98.1-64-20-97%-121/64. LABS WERE OBTAINED. ABNORMAL LAB VALUES INCLUDE THE FOLLOWING: RBC 3.69, HGB 8.3, HCT 25.8, PLT COUNT 135, CARBON DIOXIDE 20.8, TOTAL BILI 1.10, AST 53, ALK PHOS 252, CRP 61.20, ALBUMIN 1.9, GLOBULIN 5.4. BLOOD AND WOUND CULTURES REPORT GROWTH OF MRSA. HE IS CURRENTLY RECEIVING IV VANCOMYCIN. WE WILL CONTINUE WITH IV ANTIBIOTICS, IV PROCAL, AND ALBUMIN, AND WOUND CARE. OTHERWISE, WE PLAN TO FOLLOW UP WITH AM LABS AND CONTINUE TO MONITOR. - Past Medical Family Social History Past Med/Fam/Surg Hx: No changes since H&P Allergies: Allergies No Known Drug Allergies Allergy (Verified 10/09/18 09:54) - Review of Systems ROS: No change since H&P - Vital Signs and I&O's Vital Signs: Temperature 97.8 F Pulse Rate [Left Brachial] 76 Pulse Rate [Right Radial] 80 Pulse Rate 90 Respiratory Rate 20 Blood Pressure [Left Arm] 137/83 Blood Pressure 147/71 O2 Sat by Pulse Oximetry 97 Intake and Output: Intake & Output 10/13/18 10/14/18 10/15/18 10/16/18 11:59 11:59 11:59 11:59 Intake Total 1530 / 1530 2435 / 2435 5113 / 5113 2290 / 2290 Output Total 2099 / 2099 1974 / 1974 2275 / 2275 1700 / 1700 Balance -570 / -570 460 / 460 2838 / 2838 590 / 590 - Physical Exam Oriented: Normal Eyes: Normal Ear: Normal Nose: Normal Throat: Normal Respiratory: Normal Cardiovascular: Normal. negative: S3, S4, Murmur : Normal Auscultation: Bowel Sounds: Normal Palpation: Normal Tenderness: Normal Skin: Red, Tender, Hot, Wound (.skin around the Rt ankle with moderate erythema and edema but better than before .) Musculoskeletal: Right, Ankle, Swelling, Tender Psychiatric: Normal Mood Description: Calm Affect: Normal Speech Pattern: Clear, Appropriate - Laboratory and Diagnostics Result Diagrams: 10/15/18 04:25 10/15/18 13:45 Labs: 10/12/18 14:20 Ankle - Right Gram Stain - Final 10/12/18 14:20 Ankle - Right Wound Culture - Final Methicillin Resis Staph Aureus 10/09/18 11:00 Blood Blood Culture - Final 10/09/18 11:41 Blood Blood Culture - Final Methicillin Resis Staph Aureus 10/09/18 14:38 Foot - Right Gram Stain - Final 10/09/18 14:38 Foot - Right Wound Culture - Final Methicillin Resis Staph Aureus Laboratory WBC 3.9 X10^3/uL (3.6-10.0) 10/15/18 04:25 RBC 3.75 X10^6/uL (4.7-6.0) L 10/15/18 04:25 Hgb 8.4 g/dL (13.5-18.0) L 10/15/18 04:25 Hct 26.5 % (42.0-54.0) L 10/15/18 04:25 MCV 70.6 fL (80.0-100.0) L 10/15/18 04:25 MCH 22.5 pg (27.0-34.0) L 10/15/18 04:25 MCHC 31.8 g/dL (33.0-35.0) L 10/15/18 04:25 RDW 22.8 % (11.6-16.5) H 10/15/18 04:25 Plt Count 155 X10^3/uL (150.0-450.0) 10/15/18 04:25 Plt Count Comment Adequate (ADEQUATE) 10/15/18 04:25 MPV 8.8 fL (7.4-11.0) 10/15/18 04:25 Neut % (Auto) 69.8 % (42.0-75.0) 10/15/18 04:25 Lymph % (Auto) 18.6 % (21.0-51.0) L 10/15/18 04:25 Bee % (Auto) 8.3 % (0.0-13.0) 10/15/18 04:25 Eos % (Auto) 2.2 % (0.9-2.9) 10/15/18 04:25 Baso % (Auto) 1.1 % (0.2-1.0) H 10/15/18 04:25 Neut # (Auto) 2.7 x10^3/uL (2.2-4.8) 10/15/18 04:25 Lymph # (Auto) 0.7 X10^3/uL (1.3-2.9) L 10/15/18 04:25 Bee # (Auto) 0.3 x10^3/uL (0.3-0.8) 10/15/18 04:25 Eos # (Auto) 0.1 x10^3/uL (0.0-0.2) 10/15/18 04:25 Baso # (Auto) 0.0 X10^3/uL (0.0-0.1) 10/15/18 04:25 Absolute Nucleated RBC 0.0 /100WBC 10/15/18 04:25 Plt Morphology Comment Normal (NORMAL) 10/15/18 04:25 RBC Morphology Abnormal (NORMAL) 10/15/18 04:25 Hypochromasia 1+ A 10/15/18 04:25 Anisocytosis 2+ A 10/15/18 04:25 Microcytosis 1+ A 10/14/18 05:14 Ovalocytes Present 10/11/18 05:08 ESR 82 MM/HOUR (0-15) H 10/15/18 04:25 Sodium 135 mmol/L (136-145) L 10/15/18 04:25 Corrected Sodium TNP 10/15/18 04:25 Potassium 3.9 mmol/L (3.5-5.1) 10/15/18 04:25 Chloride 103 mmol/L (98-107) 10/15/18 04:25 Carbon Dioxide 23.1 mmol/L (21-32) 10/15/18 04:25 BUN 13 mg/dL (7-18) 10/15/18 04:25 Creatinine 0.81 mg/dL (0.70-1.30) 10/15/18 13:45 Est GFR (MDRD) Af Amer > 60 (>60) 10/15/18 04:25 Est GFR (MDRD) Non-Af > 60 (>60) 10/15/18 04:25 Glucose 109 mg/dL (65-99) H 10/15/18 04:25 Lactic Acid 1.5 mmol/L (0.4-2.0) 10/09/18 11:41 Uric Acid 3.4 mg/dL (3.5-7.2) L 10/09/18 16:16 Calcium 8.3 mg/dL (8.5-10.1) L 10/15/18 04:25 Corrected Calcium 9.8 mg/dL (8.5-10.1) 10/15/18 04:25 Magnesium 2.0 mg/dL (1.7-2.9) 10/11/18 05:02 Iron 24 ug/dL (50-175) L 10/12/18 10:58 Transferrin 180 mg/dL (202-364) L 10/12/18 10:58 Ferritin 197 ng/mL (26-388) 10/12/18 10:58 Total Bilirubin 0.80 mg/dL (0.2-1.0) 10/15/18 04:25 AST 71 Units/L (15-37) H 10/15/18 04:25 ALT 49 Units/L (12-78) 10/15/18 04:25 Alkaline Phosphatase 260 Units/L (46-116) H 10/15/18 04:25 C-Reactive Protein 43.70 mg/L (0-3.0) H 10/15/18 04:25 Total Protein 7.4 g/dL (6.4-8.2) 10/15/18 04:25 Albumin 2.1 g/dL (3.4-5.0) L 10/15/18 04:25 Globulin 5.3 g/dL (2.5-4.5) H 10/15/18 04:25 Albumin/Globulin Ratio 0.4 Ratio (1.1-2.1) L 10/15/18 04:25 Carcinoembryonic Ag 3.1 ng/mL (0.0-3.0) H 10/12/18 04:32 Vitamin B12 1716 pg/mL (193-986) H 10/12/18 10:58 Folate 13.6 ng/mL (>8.6) 10/12/18 10:58 Specimen Type Clean catch urine 10/09/18 16:40 Urine Color Dark yellow (YELLOW) 10/09/18 16:40 Urine Appearance Cloudy (CLEAR) 10/09/18 16:40 Urine pH 6.0 (5.0 - 8.0) 10/09/18 16:40 Ur Specific [place] 1.015 (1.000-1.030) 10/09/18 16:40 Urine Protein 3+ (NEGATIVE) 10/09/18 16:40 Urine Glucose (UA) Negative (NEGATIVE) 10/09/18 16:40 Urine Ketones Negative (NEGATIVE) 10/09/18 16:40 Urine Occult Blood 4+ (NEGATIVE) 10/09/18 16:40 Urine Nitrite Negative (NEGATIVE) 10/09/18 16:40 Urine Bilirubin 2+ (NEGATIVE) 10/09/18 16:40 Urine Urobilinogen 3+ (NORMAL) 10/09/18 16:40 Ur Leukocyte Esterase 1+ (NEGATIVE) 10/09/18 16:40 Urine RBC 5-10 /HPF (NONE SEEN) 10/09/18 16:40 Urine WBC 3-5 /HPF (NONE SEEN) 10/09/18 16:40 Ur Squamous Epith Cells Few /HPF (NEGATIVE) 10/09/18 16:40 Amorphous Sediment 1+ /HPF (NEGATIVE) 10/09/18 16:40 Urine Bacteria Trace /HPF (NEGATIVE) 10/09/18 16:40 Urine Mucus Moderate /HPF (NEGATIVE) 10/09/18 16:40 Ur Culture Indicated? No/not indicated 10/09/18 16:40 Stool Description 200g,brown,formed 10/12/18 19:25 Stl Occult Blood (IFOB) Positive (NEGATIVE) A 10/12/18 19:25 Vancomycin Trough 17.2 ug/mL (15-20) 10/15/18 13:45 Blood Type B POSITIVE 10/12/18 04:32 Antibody Screen Negative 10/12/18 04:32 Crossmatch See Detail 10/12/18 04:32 - Plan (1) Cellulitis of right ankle Status: Acute Plan: IV ANTIBIOTICS, PAIN MANAGEMENT, STATUS POST I&D, WOUND CARE, CONTINUE TO MONITOR (2) Septic arthritis of right ankle Status: Acute Qualifiers: Septic arthritis organism: staphylococcal Qualified Code(s): M00.071 - Staphylococcal arthritis, right ankle and foot Plan: IV ANTIBIOITICS, CONTINUE TO MONITOR (3) Hypokalemia Status: Acute Plan: POTASSIUM REPLACEMENT PER PROTOCOL (4) Anemia Status: Acute Qualifiers: Anemia type: iron deficiency Iron deficiency anemia type: chronic blood loss Qualified Code(s): D50.0 - Iron deficiency anemia secondary to blood loss (chronic) Plan: CONTINUE TO MONITOR (5) Hypoalbuminemia Status: Acute Plan: ALBUMIN 25% IV DAILY, CONTINUE TO MONITOR (6) Protein deficiency Status: Acute Plan: PROCAL, ALBUMIN, CONTINUE TO MONITOR
[2018-10-16] MEDS: ROXICODONE TAB 15 MG PO PRN ×2 (01:45→08:44)
[2018-10-16] MEDS: MOTRIN TAB 600 MG PO PRN (04:35)
[2018-10-16] MEDS: NS 1000 ML 1,000 ML IV SCH ×2 (04:39→13:36)
[2018-10-16 05:29] LABS: EOSINOPHILS # (AUTO) 0.1 x10^3/uL (0.0-0.2); EOSINOPHILS % (AUTO) 2.1 % (0.9-2.9); HEMATOCRIT 25.3 % (42.0-54.0); HEMOGLOBIN 8.2 g/dL (13.5-18.0); LYMPHOCYTES # (AUTO) 0.8 X10^3/uL (1.3-2.9); LYMPHOCYTES % (AUTO) 20.1 % (21.0-51.0); MEAN CORPUSCULAR HEMOGLOBIN 22.9 pg (27.0-34.0); MEAN CORPUSCULAR HGB CONC 32.4 g/dL (33.0-35.0); MEAN CORPUSCULAR VOLUME 70.8 fL (80.0-100.0); MEAN PLATELET VOLUME 8.6 fL (7.4-11.0); MONOCYTES # (AUTO) 0.3 x10^3/uL (0.3-0.8); MONOCYTES % (AUTO) 8.1 % (0.0-13.0); NEUTROPHILS # (AUTO) 2.7 x10^3/uL (2.2-4.8); NEUTROPHILS % (AUTO) 68.7 % (42.0-75.0); PLATELET COUNT 173 X10^3/uL (150.0-450.0); RED BLOOD COUNT 3.58 X10^6/uL (4.7-6.0); RED CELL DISTRIBUTION WIDTH 23.4 % (11.6-16.5); WHITE BLOOD COUNT 3.9 X10^3/uL (3.6-10.0)
[2018-10-16 05:42] LABS: ALANINE AMINOTRANSFERASE 55 Units/L (12-78); ALBUMIN 2.1 g/dL (3.4-5.0); ALKALINE PHOSPHATASE 270 Units/L (46-116); ASPARTATE AMINO TRANSFERASE 73 Units/L (15-37); BLOOD UREA NITROGEN 10 mg/dL (7-18); CALCIUM 8.4 mg/dL (8.5-10.1); CARBON DIOXIDE 24.9 mmol/L (21-32); CHLORIDE 105 mmol/L (98-107); COR CA(FOR HYPOALB) 9.9 mg/dL (8.5-10.1); COR NA(FOR HYPERGLY) 137 mmol/L (136-145); CREATININE 0.75 mg/dL (0.70-1.30); SODIUM 137 mmol/L (136-145); TOTAL PROTEIN 7.2 g/dL (6.4-8.2); eGFR NON BLACK RACES > 60 (>60)
[2018-10-16] MEDS: VANCOMYCIN HCL 1 GM VIAL 1 G in D5W 250 ML IV 250 ML IV SCH (06:05)
[2018-10-16 06:23] LABS: ERYTHROCYTE SEDIMENTATION RATE 70 MM/HOUR (0-15)
[2018-10-16 06:25] LABS: HYPOCHROMASIA 1+; PLATELET MORPHOLOGY COMMENT NORMAL (NORMAL)
[2018-10-16 06:26] LABS: ANISOCYTOSIS 2+
[2018-10-16] MEDS: ALBUMIN HUMAN 25%- 100 ML 100 ML IV SCH (08:43)
[2018-10-16] MEDS: PriLOSEC PO SCH (08:43)
[2018-10-16] MEDS: NICOTINE PATCH TD SCH (08:43)
[2018-10-16] MEDS: ZESTRIL TAB 10 MG PO SCH (08:43)
[2018-10-16] MEDS: LYRICA CAP 100 MG PO SCH (08:43)
[2018-10-16 12:21] VITALS: BP 141/76
== END 2018-10-16 13:40 | disposition home or self-care (01) | DRG 603 ==
LOC: MED/SURG 09:53 → ER 09:53 → OBSVTOIN 13:50 → MED/SURG 14:36
PROVIDERS: ADMIT Internal Medicine; ATTEND Internal Medicine
DX: K92.1 Melena; E46 Unspecified protein-calorie malnutrition; D50.0 Iron deficiency anemia secondary to blood loss (chronic); M00.071 Staphylococcal arthritis, right ankle and foot; L03.115 Cellulitis of right lower limb; E87.6 Hypokalemia; K21.9 Gastro-esophageal reflux disease without esophagitis; R79.82 Elevated C-reactive protein (CRP); I10 Essential (primary) hypertension; I87.2 Venous insufficiency (chronic) (peripheral); E88.09 Other disorders of plasma-protein metabolism, not elsewhere classified; B95.62 Methicillin resistant Staphylococcus aureus infection as the cause of diseases classified elsewhere
CPT/HCPCS: 36415; 36430; 36556; 71010; 71045; 73610; 73723; 80053; 80202; 81001; 82270; 82378; 82565; 82607; 82728; 82746; 83540; 83605; 83735; 84466; 84550; 85025; 85652; 86140; 86850; 86900; 86901; 86922; 87040; 87070; 87075; 87077; 87186; 87205; 96365; 96367; 96374; 96375; 97161; 99284; A4217; A4222; B5200; J3490; P9016; P9047; J1885; J1956; J2250; J2270; J2405; J2704; J3010; J3370; J7030; J7050; J7060; J7120

== ENCOUNTER 2018-11-26 21:07 | Observation (INO) ==
[2018-11-26] MEDS ORDERED: NS 1000 ML 1,000 ML IV ONE (21:41)
[2018-11-26] MEDS ORDERED: NS 1000 ML 1,000 ML ONE (21:46)
--- NOTE | 2018-11-26 22:00 | DR.FEVERAD ---
HPI Time seen Time Seen by Provider: 11/26/18 21:40 PCP Primary Care Physician: ALINA Complaints/Symptoms Chief Complaint Doctor Comments: A 58 y/o male presenting with fever and chills today. Tmax at home was 102.2F. He was recently treated here for MRSA bacteremia in end of September 2018 which required skin flap to this Rt foot due to the infection. He follows up Dr. BAZZI (local Surgeon) weekly and Dr. Bazzi had asked him to come to the hospital if has a fever. He denies cough or dysuria. Chief Complaint:: SEEN SCOTTY CALLE AND ALINA MERARI WAS TOLD IF EVER SPIKED A FEVER TO COME TO ER PT STATES HE WAS HERE IN SEPTEMBER FOR MRSA IN BLOOD/WOUND TO FOOT, PT STATES HE SPIKED A FEVER TODAY 102 X 2 WITHOUT RELIEF Self Treatment fo Chief Complaint: TYLENOL Nurses notes reviewed Nurses Notes Review: Yes Source History Provided: Patient Mode of Arrival Mode of Arrival: Ambulatory Timing Onset of Chief Complaint: 11/26/18 Came on: Gradually Duration Duration: Intermittent Severity Fever Severity/Quality: greater than 100.5 F Context Recent: Treated Infection Symptoms: Fever and Chills; denies None, Cough, SOB, Ear pain, Nasal symptoms, Sore throat, Dysuria, Frequency, Urgency and Rash History of: denies Diabetes, Chronic Illness, Immunosuppression, Steriod use, Indwelling crooks catheter, IV drug use and Recent travel Modifying factors Modifying factors: Nothing Associated signs and symptoms Associated signs and symptoms: None PMH PMH Past Medical History: Yes Past Medical History: GERD and Hypertension Past Surgical History: Yes Surgical History: Ortho Surgery Past Surgical History Comment: MUSCLE FLAP RIGHT FOOT RIGHT FOOT I&D Family History History of Family Medical Conditions: Yes Family Medical History: Hypertension Social History Does patient currently use any type of tobacco product: Yes Have you used tobacco products in the last 12 months: Yes Type of Tobacco Use: Cigarettes Does any household member use tobacco: No Alcohol Use: None Do you use any recreational Drugs:: No Lives With: Spouse Lives Where: Home infectious screening In the last 2 months have you had wt loss of >10#?: NO Have you had fever, night sweats or hemotysis?: No Have you traveled outside the country in the last 6 months?: No Isolation: Standard ROS Review of Systems Constitutional: Chills and Fever Eyes: No Symptoms Reported ENTM: No Symptoms Reported Respiratoy: No Symptoms Reported Cardiovascular: No Symptoms Reported Gastrointestinal/Abdominal: No Symptoms Reported Neurological: No Symptoms Reported Musculoskeletal: No Symptoms Reported Integumentary: No Symptoms Reported Hematologic/Lymphatic: No Symptoms Reported Endocrine: No Symptoms Reported Psychiatric: No Symptoms Reported PE Vital Signs Vitals: Temperature 99.1 F Pulse Rate [Left] 89 Pulse Rate 111 Respiratory Rate 20 Blood Pressure [Left Arm] 94/53 Blood Pressure 90/53 O2 Sat by Pulse Oximetry 93 General Limitations: No Limitations General Appearance: Alert and In No Apparent Distress Head Head Exam: Normal Inspection, Atraumatic and Normocephalic Eyes Eye exam: Normal Appearance and EOMI ENT ENT Exam: Normal Oropharynx, Normal External Ear Exam, Mucous Membranes Moist, Mucous Membranes Dry and TM's Normal Bilaterally Neck Neck Exam: Normal Inspection, Full ROM and Trachea Midline Respiratory Respiratory Exam: Normal Lung Sounds Bilat; negative Accessory Muscle Use, Chest Wall Tenderness, Prolonged Expiratory Phase, Respiratory Distress and Stridor Cardiovascular Cardiovascular Exam: Regular Rate, Normal Rhythm, Normal Heart Sounds, +S1 and +S2 Abdominal Exam Abdominal Exam: Normal Inspection, Normal Bowel Sounds and Soft Extremities Extremities Exam: Normal Inspection, Full ROM and Other (The Rt. rg/foot is in an immobilizer . He has a pair of crutches for ambulatory support. ) Back Back Exam: Normal Inspection Neurologic Neurological Exam: Alert and Oriented X3 Psychiatric Psychiatric Exam: Normal Affect and Normal Mood Skin Skin Exam: Dry and Normal Color MDM Differential Diagnosis Differential Diagnosis: Pneumonia, UTI, Sepsis and Viral syndrome COURSE Reevaluation 1st: Improved Education/Counseling Education/Counseling: Patient, Family, Education and Counseling Educated On: Treatment, Diagnosis, Prognosis and Needs for Follow Up ROR Labs Reviewed Laboratory Results Reviewed?: Yes Result Diagrams: 11/26/18 21:55 11/26/18 21:55 Laboratory: WBC 2.1 X10^3/uL (3.6-10.0) L 11/26/18 21:55 RBC 2.84 X10^6/uL (4.7-6.0) L 11/26/18 21:55 Hgb 6.9 g/dL (13.5-18.0) L* 11/26/18 21:55 Hct 21.5 % (42.0-54.0) L 11/26/18 21:55 MCV 75.8 fL (80.0-100.0) L 11/26/18 21:55 MCH 24.5 pg (27.0-34.0) L 11/26/18 21:55 MCHC 32.3 g/dL (33.0-35.0) L 11/26/18 21:55 RDW 26.1 % (11.6-16.5) H 11/26/18 21:55 Plt Count 79 X10^3/uL (150.0-450.0) L 11/26/18 21:55 Plt Count Comment Decreased (ADEQUATE) 11/26/18 21:55 MPV 8.9 fL (7.4-11.0) 11/26/18 21:55 Neut % (Auto) 69.5 % (42.0-75.0) 11/26/18 21:55 Lymph % (Auto) 14.2 % (21.0-51.0) L 11/26/18 21:55 [place] % (Auto) 14.8 % (0.0-13.0) H 11/26/18 21:55 Eos % (Auto) 0.7 % (0.9-2.9) L 11/26/18 21:55 Baso % (Auto) 0.8 % (0.2-1.0) 11/26/18 21:55 Neut # (Auto) 1.5 x10^3/uL (2.2-4.8) L 11/26/18 21:55 Lymph # (Auto) 0.3 X10^3/uL (1.3-2.9) L 11/26/18 21:55 [place] # (Auto) 0.3 x10^3/uL (0.3-0.8) 11/26/18 21:55 Eos # (Auto) 0.0 x10^3/uL (0.0-0.2) 11/26/18 21:55 Baso # (Auto) 0.0 X10^3/uL (0.0-0.1) 11/26/18 21:55 Absolute Nucleated RBC 0.0 /100WBC 11/26/18 21:55 Total Counted 100 11/26/18 21:55 Neutrophils % (Manual) 70 % (39-76) 11/26/18 21:55 Band Neutrophils % 6 % (0-10) 11/26/18 21:55 Lymphocytes % (Manual) 12 % (13-43) L 11/26/18 21:55 Monocytes % (Manual) 12 % (4-9) H 11/26/18 21:55 Plt Morphology Comment Normal (NORMAL) 11/26/18 21:55 RBC Morphology Abnormal (NORMAL) 11/26/18 21:55 Hypochromasia Slight A 11/26/18 21:55 Anisocytosis 3+ A 11/26/18 21:55 Schistocytes Slight A 11/26/18 21:55 Sodium 131 mmol/L (136-145) L 11/26/18 21:55 Corrected Sodium 133 mmol/L (136-145) L 11/26/18 21:55 Potassium 4.0 mmol/L (3.5-5.1) 11/26/18 21:55 Chloride 98 mmol/L (98-107) 11/26/18 21:55 Carbon Dioxide 21.6 mmol/L (21-32) 11/26/18 21:55 BUN 14 mg/dL (7-18) 11/26/18 21:55 Creatinine 0.90 mg/dL (0.70-1.30) 11/26/18 21:55 Est GFR (MDRD) Af Amer > 60 (>60) 11/26/18 21:55 Est GFR (MDRD) Non-Af > 60 (>60) 11/26/18 21:55 Glucose 163 mg/dL (65-99) H 11/26/18 21:55 Calcium 7.9 mg/dL (8.5-10.1) L 11/26/18 21:55 Corrected Calcium 9.0 mg/dL (8.5-10.1) 11/26/18 21:55 Total Bilirubin 0.60 mg/dL (0.2-1.0) 11/26/18 21:55 AST 27 Units/L (15-37) 11/26/18 21:55 ALT 22 Units/L (12-78) 11/26/18 21:55 Alkaline Phosphatase 161 Units/L (46-116) H 11/26/18 21:55 Total Protein 8.6 g/dL (6.4-8.2) H 11/26/18 21:55 Albumin 2.6 g/dL (3.4-5.0) L 11/26/18 21:55 Globulin 6.0 g/dL (2.5-4.5) H 11/26/18 21:55 Albumin/Globulin Ratio 0.4 Ratio (1.1-2.1) L 11/26/18 21:55 Specimen Type Clean catch urine 11/26/18 21:50 Urine Color [place] (YELLOW) 11/26/18 21:50 Urine Appearance Clear (CLEAR) 11/26/18 21:50 Urine pH 6.0 (5.0 - 8.0) 11/26/18 21:50 Ur Specific [place] 1.020 (1.000-1.030) 11/26/18 21:50 Urine Protein Negative (NEGATIVE) 11/26/18 21:50 Urine Glucose (UA) Negative (NEGATIVE) 11/26/18 21:50 Urine Ketones Negative (NEGATIVE) 11/26/18 21:50 Urine Occult Blood 4+ (NEGATIVE) 11/26/18 21:50 Urine Nitrite Negative (NEGATIVE) 11/26/18 21:50 Urine Bilirubin Negative (NEGATIVE) 11/26/18 21:50 Urine Urobilinogen 2+ (NORMAL) 11/26/18 21:50 Ur Leukocyte Esterase Negative (NEGATIVE) 11/26/18 21:50 Urine RBC 10-20 /HPF (NONE SEEN) 11/26/18 21:50 Urine WBC 0-2 /HPF (NONE SEEN) 11/26/18 21:50 Ur Squamous Epith Cells Rare /HPF (NEGATIVE) 11/26/18 21:50 Urine Bacteria Trace /HPF (NEGATIVE) 11/26/18 21:50 Ur Culture Indicated? No/not indicated 11/26/18 21:50 Stool Description Fob tube 11/26/18 22:36 Stl Occult Blood (IFOB) Negative (NEGATIVE) 11/26/18 22:36 Urine Opiates Screen Negative (NEG=<300) 11/26/18 21:50 Urine Methadone Screen Negative (NEG=<300) 11/26/18 21:50 Ur Barbiturates Screen Negative (NEG=<200) 11/26/18 21:50 Ur Phencyclidine Scrn Negative (NEG=<25) 11/26/18 21:50 Ur Amphetamines Screen Negative (NEG=<1000) 11/26/18 21:50 U Benzodiazepines Scrn Negative (NEG=<200) 11/26/18 21:50 Urine Cocaine Screen Negative (NEG=<300) 11/26/18 21:50 U Marijuana (THC) Screen Negative (NEG=<50) 11/26/18 21:50 XRAY XRAY Interpreted by: Self XRAY Findings: CXR: Normal study Opioid Opioid Risk Tool Total: 0 Total Score Risk Category: Low Risk Copyright: Keith VERDUGO predicting aberrant behaviors Diagnosis Discharge Problem: Acquired pancytopenia, Acute hypotension, Acute hyponatremia Fever Qualifiers: Fever type: unspecified Qualified Code(s): R50.9 - Fever, unspecified Instructions Forms: Excuse From Work
--- NOTE | 2018-11-26 22:04 | RAD ---
HISTORY: Fever Study: Single-view of the chest Comparison: October 09, 2018 Findings: The patient is rotated. The cardiac silhouette is unremarkable. The costophrenic angles are not entirely included. Chronic appearing changes are again seen within both lungs. IMPRESSION: 1. No definite acute cardiopulmonary disease is appreciated. Reported By:
[2018-11-26 22:10] LABS: BASOPHILS % (AUTO) 0.8 % (0.2-1.0); EOSINOPHILS % (AUTO) 0.7 % (0.9-2.9); HEMATOCRIT 21.5 % (42.0-54.0); LYMPHOCYTES # (AUTO) 0.3 X10^3/uL (1.3-2.9); LYMPHOCYTES % (AUTO) 14.2 % (21.0-51.0); MEAN CORPUSCULAR HEMOGLOBIN 24.5 pg (27.0-34.0); MEAN CORPUSCULAR HGB CONC 32.3 g/dL (33.0-35.0); MEAN CORPUSCULAR VOLUME 75.8 fL (80.0-100.0); MEAN PLATELET VOLUME 8.9 fL (7.4-11.0); MONOCYTES # (AUTO) 0.3 x10^3/uL (0.3-0.8); MONOCYTES % (AUTO) 14.8 % (0.0-13.0); NEUTROPHILS # (AUTO) 1.5 x10^3/uL (2.2-4.8); NEUTROPHILS % (AUTO) 69.5 % (42.0-75.0); PLATELET COUNT 79 X10^3/uL (150.0-450.0); RED BLOOD COUNT 2.84 X10^6/uL (4.7-6.0); RED CELL DISTRIBUTION WIDTH 26.1 % (11.6-16.5); WHITE BLOOD COUNT 2.1 X10^3/uL (3.6-10.0)
[2018-11-26 22:18] LABS: ALANINE AMINOTRANSFERASE 22 Units/L (12-78); ALBUMIN 2.6 g/dL (3.4-5.0); ALKALINE PHOSPHATASE 161 Units/L (46-116); ASPARTATE AMINO TRANSFERASE 27 Units/L (15-37); BLOOD UREA NITROGEN 14 mg/dL (7-18); CALCIUM 7.9 mg/dL (8.5-10.1); CARBON DIOXIDE 21.6 mmol/L (21-32); CHLORIDE 98 mmol/L (98-107); COR NA(FOR HYPERGLY) 133 mmol/L (136-145); SODIUM 131 mmol/L (136-145); TOTAL PROTEIN 8.6 g/dL (6.4-8.2); eGFR NON BLACK RACES > 60 (>60)
[2018-11-26 22:22] LABS: HEMOGLOBIN 6.9 g/dL (13.5-18.0)
[2018-11-26 22:28] LABS: BILIRUBIN,URINE NEGATIVE (NEGATIVE); BLOOD/HEMOGLOBIN,URINE 4+ (NEGATIVE); GLUCOSE, URINE NEGATIVE (NEGATIVE); KETONES,URINE NEGATIVE (NEGATIVE); LEUKOCYTE ESTERASE ,URINE NEGATIVE (NEGATIVE); NITRITES,URINE NEGATIVE (NEGATIVE); PROTEIN,URINE NEGATIVE (NEGATIVE); UROBILINOGEN,URINE 2+ (NORMAL)
[2018-11-26 22:31] LABS: BAND NEUTROPHILS % 6 % (0-10)
[2018-11-26 22:32] LABS: ANISOCYTOSIS 3+; HYPOCHROMASIA SLIGHT; PLATELET MORPHOLOGY COMMENT NORMAL (NORMAL); SCHISTOCYTES SLIGHT
[2018-11-26 22:36] LABS: APPEARANCE,URINE CLEAR (CLEAR); BACTERIA,URINE TRACE /HPF (NEGATIVE); COLOR,URINE AMBER (YELLOW); SQUAMOUS EPITHELIAL CELL,UR RARE /HPF (NEGATIVE)
[2018-11-26] MEDS: NS 1000 ML 1,000 ML IV SCH (23:54)
[2018-11-27] MEDS ORDERED: BENADRYL INJ 50 MG VIAL IVP PRN (01:00)
[2018-11-27] MEDS ORDERED: NS 500 ML IV 500 ML IV ONE (01:00)
[2018-11-27] MEDS ORDERED: TYLENOL 325 MG TAB PO PRN (01:00)
[2018-11-27] MEDS ORDERED: DURAGESIC 75 mcg/HR PATCH TD SCH ×2 (01:38→09:00)
[2018-11-27] MEDS ORDERED: OXYCODONE 20 MG PO PRN (01:38)
[2018-11-27 02:23] VITALS: BMI 22.9
[2018-11-27 07:38] LABS: BASOPHILS % (AUTO) 0.7 % (0.2-1.0); HEMATOCRIT 27.7 % (42.0-54.0); LYMPHOCYTES # (AUTO) 0.7 X10^3/uL (1.3-2.9); LYMPHOCYTES % (AUTO) 39.2 % (21.0-51.0); MEAN CORPUSCULAR HEMOGLOBIN 25.7 pg (27.0-34.0); MEAN CORPUSCULAR HGB CONC 32.5 g/dL (33.0-35.0); MEAN CORPUSCULAR VOLUME 79.1 fL (80.0-100.0); MEAN PLATELET VOLUME 8.9 fL (7.4-11.0); MONOCYTES # (AUTO) 0.4 x10^3/uL (0.3-0.8); MONOCYTES % (AUTO) 24.3 % (0.0-13.0); NEUTROPHILS # (AUTO) 0.6 x10^3/uL (2.2-4.8); NEUTROPHILS % (AUTO) 33.8 % (42.0-75.0); PLATELET COUNT 74 X10^3/uL (150.0-450.0); RED CELL DISTRIBUTION WIDTH 25.8 % (11.6-16.5)
[2018-11-27 07:42] LABS: ALANINE AMINOTRANSFERASE 17 Units/L (12-78); ALBUMIN 2.3 g/dL (3.4-5.0); ALKALINE PHOSPHATASE 147 Units/L (46-116); ASPARTATE AMINO TRANSFERASE 26 Units/L (15-37); BLOOD UREA NITROGEN 12 mg/dL (7-18); CALCIUM 7.7 mg/dL (8.5-10.1); CARBON DIOXIDE 21.5 mmol/L (21-32); CHLORIDE 103 mmol/L (98-107); COR CA(FOR HYPOALB) 9.1 mg/dL (8.5-10.1); CREATININE 0.71 mg/dL (0.70-1.30); SODIUM 133 mmol/L (136-145); TOTAL PROTEIN 7.8 g/dL (6.4-8.2); eGFR NON BLACK RACES > 60 (>60)
[2018-11-27 07:47] LABS: WHITE BLOOD COUNT 1.8 X10^3/uL (3.6-10.0)
[2018-11-27 07:55] LABS: BAND NEUTROPHILS % 6 % (0-10); PLATELET MORPHOLOGY COMMENT NORMAL (NORMAL)
[2018-11-27 07:56] LABS: ANISOCYTOSIS 3+; HYPOCHROMASIA SLIGHT
[2018-11-27] MEDS: LYRICA CAP 100 MG PO SCH (08:21)
[2018-11-27] MEDS: RIFADIN CAP 300 MG PO SCH ×2 (08:21→20:39)
[2018-11-27] MEDS ORDERED: BACTRIM DS TAB PO SCH (09:00)
[2018-11-27] MEDS: NS 1000 ML 1,000 ML IV SCH ×2 (10:40→16:07)
[2018-11-27 12:06] LABS: BASOPHILS % (AUTO) 1.1 % (0.2-1.0); EOSINOPHILS % (AUTO) 1.8 % (0.9-2.9); HEMATOCRIT 25.7 % (42.0-54.0); HEMOGLOBIN 8.4 g/dL (13.5-18.0); LYMPHOCYTES # (AUTO) 0.7 X10^3/uL (1.3-2.9); LYMPHOCYTES % (AUTO) 41.1 % (21.0-51.0); MEAN CORPUSCULAR HGB CONC 32.6 g/dL (33.0-35.0); MEAN CORPUSCULAR VOLUME 79.7 fL (80.0-100.0); MEAN PLATELET VOLUME 8.9 fL (7.4-11.0); MONOCYTES # (AUTO) 0.3 x10^3/uL (0.3-0.8); MONOCYTES % (AUTO) 21.1 % (0.0-13.0); NEUTROPHILS # (AUTO) 0.6 x10^3/uL (2.2-4.8); NEUTROPHILS % (AUTO) 34.9 % (42.0-75.0); PLATELET COUNT 72 X10^3/uL (150.0-450.0); RED BLOOD COUNT 3.22 X10^6/uL (4.7-6.0); RED CELL DISTRIBUTION WIDTH 25.3 % (11.6-16.5)
[2018-11-27 12:30] LABS: WHITE BLOOD COUNT 1.6 X10^3/uL (3.6-10.0)
[2018-11-27] MEDS ORDERED: PHARMACY CONSULT - VANCOMYCIN XX SCH (15:00)
[2018-11-27] MEDS: ROXICODONE TAB 5 MG PO PRN ×2 (16:24→23:33)
[2018-11-27] MEDS: VANCOMYCIN HCL 1 GM VIAL 1 G in D5W 250 ML IV 250 ML IV SCH (20:39)
[2018-11-28] MEDS: NS 1000 ML 1,000 ML IV SCH ×6 (00:23→23:29)
[2018-11-28] MEDS: ROXICODONE TAB 5 MG PO PRN ×3 (05:58→20:05)
[2018-11-28 06:13] LABS: EOSINOPHILS # (AUTO) 0.1 x10^3/uL (0.0-0.2); EOSINOPHILS % (AUTO) 3.2 % (0.9-2.9); HEMATOCRIT 27.3 % (42.0-54.0); LYMPHOCYTES # (AUTO) 0.9 X10^3/uL (1.3-2.9); LYMPHOCYTES % (AUTO) 39.1 % (21.0-51.0); MEAN CORPUSCULAR HEMOGLOBIN 25.7 pg (27.0-34.0); MEAN CORPUSCULAR HGB CONC 32.9 g/dL (33.0-35.0); MEAN CORPUSCULAR VOLUME 78.2 fL (80.0-100.0); MEAN PLATELET VOLUME 8.4 fL (7.4-11.0); MONOCYTES # (AUTO) 0.4 x10^3/uL (0.3-0.8); MONOCYTES % (AUTO) 17.3 % (0.0-13.0); NEUTROPHILS # (AUTO) 0.9 x10^3/uL (2.2-4.8); NEUTROPHILS % (AUTO) 39.4 % (42.0-75.0); PLATELET COUNT 79 X10^3/uL (150.0-450.0); RED BLOOD COUNT 3.49 X10^6/uL (4.7-6.0); RED CELL DISTRIBUTION WIDTH 25.5 % (11.6-16.5); WHITE BLOOD COUNT 2.2 X10^3/uL (3.6-10.0)
[2018-11-28 06:32] LABS: ALANINE AMINOTRANSFERASE 15 Units/L (12-78); ALBUMIN 2.3 g/dL (3.4-5.0); ALKALINE PHOSPHATASE 230 Units/L (46-116); ASPARTATE AMINO TRANSFERASE 25 Units/L (15-37); BLOOD UREA NITROGEN 8 mg/dL (7-18); CARBON DIOXIDE 20.7 mmol/L (21-32); CHLORIDE 102 mmol/L (98-107); COR CA(FOR HYPOALB) 9.4 mg/dL (8.5-10.1); COR NA(FOR HYPERGLY) 133 mmol/L (136-145); CREATININE 0.67 mg/dL (0.70-1.30); SODIUM 132 mmol/L (136-145); TOTAL PROTEIN 7.9 g/dL (6.4-8.2); eGFR NON BLACK RACES > 60 (>60)
[2018-11-28] MEDS: VANCOMYCIN HCL 1 GM VIAL 1 G in D5W 250 ML IV 250 ML IV SCH ×2 (09:15→20:05)
[2018-11-28] MEDS: LYRICA CAP 100 MG PO SCH (09:15)
[2018-11-28] MEDS: RIFADIN CAP 300 MG PO SCH ×2 (09:15→20:05)
[2018-11-28] MEDS: HEMOCYTE-PLUS PO SCH (09:15)
--- NOTE | 2018-11-28 20:22 | DR.H&P ---
H&P - History & Physical for Day of: H&P Date: 11/27/18 - Chief Complaint Chief Complaint: FEVER, CHILLS, RECENT HX OF MRSA BACTEREMIA - History of Present Illness History of Present Illness: IS A 58 YEAR OLD PATIENT OF OURS WHO PRESEN SIENA TO THE ER WITH COMPLAINTS OF FEVER AND CHILLS TODAY. HE REPORTS THAT HIS TEMPERATURE AT HOME, PRIOR TO ARRIVAL, WAS 102.2. HE HAS BEEN BEING TREATED FOR MRSA BACTEREMIA SINCE THE END OF SEPTEMBER DUE TO INFECTION OF THE RIGHT FOOT. HE HAS BEEN FOLLOWED BY , GENERAL SURGEON. HE REPORTS THAT HIS RIGHT FOOT REQUIRED A SKIN FLAP DUE TO THE INFECTION. HE HAS BEEN TAKING BACTRIM AND RIFAMPIN AT HOME. ON ARRIVAL TO THE ER, VITALS WERE 101.1-111-20-95%-90/53. LABS WERE OBTAINED. ABNORMAL LAB VALUES INCLUDE THE FOLLOWING: WBC 2.1, RBC 2.84, HGB 6.9, HCT 21.5, PLT COUNT 79, SODIUM 131, GLUCOSE 163, CALCIUM 163, CALCIUM 7.9, ALK PHOS 161, TOTAL PROTEIN 8.6, ALBUMIN 2.6, IRON 16. STOOL IS NEGATIVE FOR OCCULT BLOOD. A URINALYSIS WAS OBTAINED AND REVEALED: WBC 0-2, RBC 10-20, OCCULT BLOOD 4+, BACTERIA TRACE, LEUKOCYTES NEGATIVE, NITRITE NEGATIVE. BLOOD CULTURES WERE OBTAINED. A CHEST XRAY WAS OBTAINED AND REVEALED: No definite acute cardiopulmonary disease is appreciated. HE WAS ADMITTED TO THE HOSPITAL FOR FURTHER EVALUATION AND TREATMENT OF ANEMIA, FEVER, HYPOTENSION, AND PANCYTOPENIA. WE WILL TRANSFUSE WITH TWO UNITS OF PACKED RED BLOOD CELLS AND START NORMAL SALINE AT 125 ML/HR, VANCOMYCIN 1G IV Q12H, RIFAMPIN 300MG PO BID, AND WILL RESUME HIS OTHER HOME MEDICATIONS. OTHERWISE, WE WILL FOLLOW UP WITH AM LABS AND CONTINUE TO MONITOR. - Past Medical History Past Medical History: Hypertension, GERD - Past Surgical History Surgical History: Ortho Surgery - Family History Family Medical History: Hypertension - Social History Does patient currently use any type of tobacco product: Yes Have you used tobacco products in the last 12 months: Yes Type of Tobacco Use: Cigarettes Does any household member use tobacco: No Alcohol Use: None Drug Use: Prescription Drugs - Medications Home Medications: No Known Drug Allergies Allergy (Verified 11/26/18 21:41) CONTINUE taking the following medications oxycodone 20 mg PO QID PRN 11/26/18 [History] - Review of Systems Constitutional: Fever, Chills Eyes: No Symptoms Reported ENT: No Symptoms Reported Respiratory: No Symptoms Reported Cardiovascular: No Symptoms Reported Gastrointestinal: No Symptoms Reported Genitourinary: No Symptoms Reported Musculoskeletal: No Symptoms Reported Skin: Wound (HEALING WOUNDS TO RIGHT HEEL ) Neurological: No Symptoms Reported - Physical Exam Vital Signs: Temperature 98.4 F Pulse Rate [Left] 100 Pulse Rate 111 Respiratory Rate 20 Blood Pressure [Left Arm] 106/63 Blood Pressure 90/53 O2 Sat by Pulse Oximetry 90 Oriented: Normal Eyes: Normal Ear: Normal Nose: Normal Throat: Normal Respiratory: Diminished Throughout Cardiovascular: Tachycardia : Normal Auscultation: Bowel Sounds: Normal Palpation: Normal Tenderness: Normal Skin: Wound (HEALING WOUNDS TO RIGHT HEEL ) Musculoskeletal: Normal Psychiatric: Normal Mood Description: Calm Affect: Normal Speech Pattern: Clear - Assessment/Plan (1) Anemia Qualifiers: Anemia type: iron deficiency Iron deficiency anemia type: unspecified iron deficiency Qualified Code(s): D50.9 - Iron deficiency anemia, unspecified Status: Acute Plan: TRANSFUSE 2 UNITS PRBC, MONITOR H&H, HEMOCYTE, CONTINUE TO MONITOR (2) Fever Qualifiers: Fever type: unspecified Qualified Code(s): R50.9 - Fever, unspecified Status: Acute (3) Acquired pancytopenia Status: Acute (4) Acute hypotension Status: Acute Plan: IV FLUIDS, CONTINUE TO MONITOR - Allergies Allergies/Adverse Reactions: Allergies Allergy/AdvReac Type Severity Reaction Status Date / Time No Known Drug Allergies Allergy Verified 11/26/18 21:41
[2018-11-29] MEDS: ROXICODONE TAB 5 MG PO PRN ×4 (02:06→20:59)
[2018-11-29] MEDS: NS 1000 ML 1,000 ML IV SCH ×4 (05:47→23:38)
[2018-11-29 06:02] LABS: BASOPHILS % (AUTO) 0.4 % (0.2-1.0); EOSINOPHILS # (AUTO) 0.1 x10^3/uL (0.0-0.2); EOSINOPHILS % (AUTO) 1.9 % (0.9-2.9); HEMATOCRIT 26.6 % (42.0-54.0); HEMOGLOBIN 8.7 g/dL (13.5-18.0); LYMPHOCYTES # (AUTO) 1.1 X10^3/uL (1.3-2.9); LYMPHOCYTES % (AUTO) 31.1 % (21.0-51.0); MEAN CORPUSCULAR HEMOGLOBIN 25.6 pg (27.0-34.0); MEAN CORPUSCULAR HGB CONC 32.8 g/dL (33.0-35.0); MEAN CORPUSCULAR VOLUME 78.2 fL (80.0-100.0); MEAN PLATELET VOLUME 8.4 fL (7.4-11.0); MONOCYTES # (AUTO) 0.4 x10^3/uL (0.3-0.8); NEUTROPHILS % (AUTO) 55.6 % (42.0-75.0); PLATELET COUNT 63 X10^3/uL (150.0-450.0); RED CELL DISTRIBUTION WIDTH 25.7 % (11.6-16.5); WHITE BLOOD COUNT 3.6 X10^3/uL (3.6-10.0)
[2018-11-29 06:12] LABS: ALANINE AMINOTRANSFERASE 14 Units/L (12-78); ALBUMIN 2.2 g/dL (3.4-5.0); ALKALINE PHOSPHATASE 184 Units/L (46-116); ASPARTATE AMINO TRANSFERASE 25 Units/L (15-37); BLOOD UREA NITROGEN 8 mg/dL (7-18); CALCIUM 8.1 mg/dL (8.5-10.1); CARBON DIOXIDE 21.1 mmol/L (21-32); CHLORIDE 103 mmol/L (98-107); COR CA(FOR HYPOALB) 9.5 mg/dL (8.5-10.1); CREATININE 0.62 mg/dL (0.70-1.30); SODIUM 136 mmol/L (136-145); eGFR NON BLACK RACES > 60 (>60)
[2018-11-29 06:36] LABS: ANISOCYTOSIS 3+; HYPOCHROMASIA SLIGHT; PLATELET MORPHOLOGY COMMENT NORMAL (NORMAL)
[2018-11-29] MEDS: RIFADIN CAP 300 MG PO SCH ×2 (08:26→20:59)
[2018-11-29] MEDS: LYRICA CAP 100 MG PO SCH (08:26)
[2018-11-29] MEDS: HEMOCYTE-PLUS PO SCH (08:26)
[2018-11-29] MEDS ORDERED: PHARMACY COMMENT IV NR (08:30)
[2018-11-29 09:21] LABS: CREATININE 0.7 mg/dL (0.70-1.30); VANCOMYCIN,TROUGH 7.8 ug/mL (15-20)
[2018-11-29] MEDS: VANCOMYCIN HCL 1 GM VIAL 1 G in D5W 250 ML IV 250 ML IV SCH ×3 (09:35→20:59)
[2018-11-29 21:13] VITALS: BP 121/75
--- NOTE | 2018-11-29 21:38 | PCM.PROG ---
Progress Note - Progress Note for Day of Date of Exam: 11/28/18 - Subjective Subjective: IS BEING TREATED FOR ANEMIA, FEVER, HYPOTENSION, AND PANCYTOPENIA. TODAY, HE IS ALERT AND ORIENTED, LYING IN BED ON MORNING ROUNDS. HE COMPLAINS OF WEAKNESS THIS MORNING. ON EXAMINATION, HEART IS REGULAR IN RATE AND RHYTHM. BILATERAL LUNGS ARE NOTED TO BE CLEAR TO AUSCULTATION. ABDOMEN IS ROUND, SOFT, AND NON-TENDER WITH NORMAL BOWEL SOUNDS NOTED IN ALL QUADRANTS. HIS VITALS THIS MORNING ARE: 98.1-87-20-94%-116/68. LABS WERE OBTAINED. ABNORMAL LAB VALUES INCLUDE THE FOLLOWING: WBC 2.2, RBC 3.49, HGB 9.0, HCT 27.3, PLT COUNT 79, SODIUM 132, CARBON DIOXIDE 20.7, GLUCOSE 125, CALCIUM 8.0, ALK PHOS 230, ALBUMIN 2.3, GLOBULIN 5.6. BLOOD CULTURES ARE PENDING. HE IS CURRENTLY RECEIVING IV FLUIDS, VANCOMYCIN 1G IV Q12H, AND HOME MEDS WERE RESUMED. WE WILL CONTINUE WITH CURRENT PLAN OF CARE TODAY. OTHERWISE, WE PLAN TO FOLLOW UP WITH AM LABS AND CONTINUE TO MONITOR. - Past Medical Family Social History Past Med/Fam/Surg Hx: No changes since H&P Allergies: Allergies No Known Drug Allergies Allergy (Verified 11/26/18 21:41) - Review of Systems ROS: No change since H&P - Vital Signs and I&O's Vital Signs: Temperature 99.2 F Pulse Rate [Left] 100 Pulse Rate 111 Respiratory Rate 20 Blood Pressure [Left Arm] 121/75 Blood Pressure 90/53 O2 Sat by Pulse Oximetry 93 Intake and Output: Intake & Output 11/27/18 11/28/18 11/29/18 11/30/18 11:59 11:59 11:59 11:59 Intake Total 1225 / 1225 4217 / 4217 2820 / 2820 3155 / 3155 Output Total 750 / 750 3275 / 3275 4900 / 4900 2099 / 2099 Balance 475 / 475 942 / 942 -2080 / -2079 1055 / 1055 - Physical Exam Oriented: Normal Eyes: Normal Ear: Normal Nose: Normal Throat: Normal Respiratory: Normal Cardiovascular: Normal : Normal Auscultation: Bowel Sounds: Normal Palpation: Normal Tenderness: Normal Skin: Wound (HEALING WOUNDS TO RIGHT HEEL ) Musculoskeletal: Normal Psychiatric: Normal Mood Description: Calm Affect: Normal Speech Pattern: Clear, Appropriate - Laboratory and Diagnostics Result Diagrams: 11/29/18 05:18 11/29/18 08:45 Labs: 11/26/18 22:00 Blood Blood Culture - Preliminary 11/26/18 21:55 Blood Blood Culture - Preliminary Laboratory WBC 3.6 X10^3/uL (3.6-10.0) 11/29/18 05:18 RBC 3.40 X10^6/uL (4.7-6.0) L 11/29/18 05:18 Hgb 8.7 g/dL (13.5-18.0) L 11/29/18 05:18 Hct 26.6 % (42.0-54.0) L 11/29/18 05:18 MCV 78.2 fL (80.0-100.0) L 11/29/18 05:18 MCH 25.6 pg (27.0-34.0) L 11/29/18 05:18 MCHC 32.8 g/dL (33.0-35.0) L 11/29/18 05:18 RDW 25.7 % (11.6-16.5) H 11/29/18 05:18 Plt Count 63 X10^3/uL (150.0-450.0) L 11/29/18 05:18 Plt Count Comment Decreased (ADEQUATE) 11/29/18 05:18 MPV 8.4 fL (7.4-11.0) 11/29/18 05:18 Neut % (Auto) 55.6 % (42.0-75.0) 11/29/18 05:18 Lymph % (Auto) 31.1 % (21.0-51.0) 11/29/18 05:18 [place] % (Auto) 11.0 % (0.0-13.0) 11/29/18 05:18 Eos % (Auto) 1.9 % (0.9-2.9) 11/29/18 05:18 Baso % (Auto) 0.4 % (0.2-1.0) 11/29/18 05:18 Neut # (Auto) 2.0 x10^3/uL (2.2-4.8) L 11/29/18 05:18 Lymph # (Auto) 1.1 X10^3/uL (1.3-2.9) L 11/29/18 05:18 [place] # (Auto) 0.4 x10^3/uL (0.3-0.8) 11/29/18 05:18 Eos # (Auto) 0.1 x10^3/uL (0.0-0.2) 11/29/18 05:18 Baso # (Auto) 0.0 X10^3/uL (0.0-0.1) 11/29/18 05:18 Absolute Nucleated RBC 0.2 /100WBC 11/29/18 05:18 Total Counted 50 11/27/18 07:10 Neutrophils % (Manual) 46 % (39-76) 11/27/18 07:10 Band Neutrophils % 6 % (0-10) 11/27/18 07:10 Lymphocytes % (Manual) 39 % (13-43) 11/27/18 07:10 Monocytes % (Manual) 8 % (4-9) 11/27/18 07:10 Eosinophils % (Manual) 2 % (0-6) 11/27/18 07:10 Plt Morphology Comment Normal (NORMAL) 11/29/18 05:18 RBC Morphology Abnormal (NORMAL) 11/29/18 05:18 Dimorphic RBCs Slight 11/29/18 05:18 Hypochromasia Slight A 11/29/18 05:18 Anisocytosis 3+ A 11/29/18 05:18 Schistocytes Slight A 11/26/18 21:55 Sodium 136 mmol/L (136-145) 11/29/18 05:18 Corrected Sodium TNP 11/29/18 05:18 Potassium 3.9 mmol/L (3.5-5.1) 11/29/18 05:18 Chloride 103 mmol/L (98-107) 11/29/18 05:18 Carbon Dioxide 21.1 mmol/L (21-32) 11/29/18 05:18 BUN 8 mg/dL (7-18) 11/29/18 05:18 Creatinine 0.70 mg/dL (0.70-1.30) 11/29/18 08:45 Est GFR (MDRD) Af Amer > 60 (>60) 11/29/18 05:18 Est GFR (MDRD) Non-Af > 60 (>60) 11/29/18 05:18 Glucose 109 mg/dL (65-99) H 11/29/18 05:18 Lactic Acid 1.2 mmol/L (0.4-2.0) 11/27/18 15:02 Calcium 8.1 mg/dL (8.5-10.1) L 11/29/18 05:18 Corrected Calcium 9.5 mg/dL (8.5-10.1) 11/29/18 05:18 Iron 16 ug/dL (50-175) L 11/26/18 21:55 Transferrin 256 mg/dL (202-364) 11/26/18 21:55 Ferritin 31 ng/mL (26-388) 11/26/18 21:55 Total Bilirubin 0.60 mg/dL (0.2-1.0) 11/29/18 05:18 AST 25 Units/L (15-37) 11/29/18 05:18 ALT 14 Units/L (12-78) 11/29/18 05:18 Alkaline Phosphatase 184 Units/L (46-116) H 11/29/18 05:18 Total Protein 8.0 g/dL (6.4-8.2) 11/29/18 05:18 Albumin 2.2 g/dL (3.4-5.0) L 11/29/18 05:18 Globulin 5.8 g/dL (2.5-4.5) H 11/29/18 05:18 Albumin/Globulin Ratio 0.4 Ratio (1.1-2.1) L 11/29/18 05:18 Vitamin B12 602 pg/mL (193-986) 11/26/18 21:55 Folate 18.5 ng/mL (>8.6) 11/26/18 21:55 Specimen Type Clean catch urine 11/26/18 21:50 Urine Color Blaire (YELLOW) 11/26/18 21:50 Urine Appearance Clear (CLEAR) 11/26/18 21:50 Urine pH 6.0 (5.0 - 8.0) 11/26/18 21:50 Ur Specific [place] 1.020 (1.000-1.030) 11/26/18 21:50 Urine Protein Negative (NEGATIVE) 11/26/18 21:50 Urine Glucose (UA) Negative (NEGATIVE) 11/26/18 21:50 Urine Ketones Negative (NEGATIVE) 11/26/18 21:50 Urine Occult Blood 4+ (NEGATIVE) 11/26/18 21:50 Urine Nitrite Negative (NEGATIVE) 11/26/18 21:50 Urine Bilirubin Negative (NEGATIVE) 11/26/18 21:50 Urine Urobilinogen 2+ (NORMAL) 11/26/18 21:50 Ur Leukocyte Esterase Negative (NEGATIVE) 11/26/18 21:50 Urine RBC 10-20 /HPF (NONE SEEN) 11/26/18 21:50 Urine WBC 0-2 /HPF (NONE SEEN) 11/26/18 21:50 Ur Squamous Epith Cells Rare /HPF (NEGATIVE) 11/26/18 21:50 Urine Bacteria Trace /HPF (NEGATIVE) 11/26/18 21:50 Ur Culture Indicated? No/not indicated 11/26/18 21:50 Stool Description Fob tube 11/26/18 22:36 Stl Occult Blood (IFOB) Negative (NEGATIVE) 11/26/18 22:36 Vancomycin Trough 7.8 ug/mL (15-20) L 11/29/18 08:45 Urine Opiates Screen Negative (NEG=<300) 11/26/18 21:50 Urine Methadone Screen Negative (NEG=<300) 11/26/18 21:50 Ur Barbiturates Screen Negative (NEG=<200) 11/26/18 21:50 Ur Phencyclidine Scrn Negative (NEG=<25) 11/26/18 21:50 Ur Amphetamines Screen Negative (NEG=<1000) 11/26/18 21:50 U Benzodiazepines Scrn Negative (NEG=<200) 11/26/18 21:50 Urine Cocaine Screen Negative (NEG=<300) 11/26/18 21:50 U Marijuana (THC) Screen Negative (NEG=<50) 11/26/18 21:50 Blood Type B POSITIVE 11/26/18 22:45 Antibody Screen Negative 11/26/18 22:45 Crossmatch See Detail 11/26/18 22:45 - Plan (1) Anemia Status: Acute Qualifiers: Anemia type: iron deficiency Iron deficiency anemia type: unspecified iron deficiency Qualified Code(s): D50.9 - Iron deficiency anemia, unspecified Plan: MONITOR H&H, HEMOCYTE, CONTINUE TO MONITOR (2) Fever Status: Acute Qualifiers: Fever type: unspecified Qualified Code(s): R50.9 - Fever, unspecified (3) Acquired pancytopenia Status: Acute (4) Acute hypotension Status: Acute Plan: IV FLUIDS, CONTINUE TO MONITOR
[2018-11-29] MEDS ORDERED: NARCAN INJ IVP ONE (21:55)
[2018-11-29] MEDS ORDERED: NARCAN INJ ONE (21:57)
[2018-11-29] MEDS: ADRENALINE CHL INJ IVP SCH ×9 (22:05→22:29)
--- NOTE | 2018-11-30 08:29 | PCM.PROG ---
Progress Note - Progress Note for Day of Date of Exam: 11/29/18 - Subjective Subjective: IS BEING TREATED FOR ANEMIA, FEVER, HYPOTENSION, AND PANCYTOPENIA. TODAY, HE IS ALERT AND ORIENTED, SITTING UP IN BED ON MORNING ROUNDS. HE REPORTS LOWER BACK PAIN THIS MORNING. HE HAS A HISTORY OF CHRONIC BACK PAIN AND IS [facility]. LAB IS AT BEDSIDE THIS MORNING AND REPORTS HAVING DIFFICULTY OBTAINING BLOOD THIS MORNING. PATIENT REPORTS THAT THE DISTILLER OFTEN HAVE TROUBLE FINDING VEINS TO OBTAIN BLOOD FROM. ON EXAMINATION, HEART IS REGULAR IN RATE AND RHYTHM. BILATERAL LUNGS ARE NOTED TO BE CLEAR TO AUSCULTATION. ABDOMEN IS ROUND, SOFT, AND NON-TENDER WITH NORMAL BOWEL SOUNDS NOTED IN ALL QUADRANTS. THERE ARE SCABBED OVER WOUNDS TO THE RIGHT HEEL. HIS VITALS THIS MORNING ARE: 98.6-93-20-95%-130/70. LABS WERE OBTAINED. ABNORMAL LAB VALUES INCLUDE THE FOLLOWING: WBC IS NORMAL TODAY. HGB 8.7, HCT 26.6, PLT COUNT 63, CREATININE 0.62, GLUCOSE 109, CALCIUM 8.1, ALK PHOS 184, ALBUMIN 2.2, GLOBULIN 5.8. A PERIPHERAL SMEAR IS PENDING. BLOOD CULTURES ARE PENDING, BUT PRELIMINARY CULTURES REPORT NO GROWTH. HE IS CURRENTLY RECEIVING IV FLUIDS, VANCOMYCIN 1G IV Q12H, AND HOME MEDS WERE RESUMED WITH THE EXCEPTION OF BACTRIM. WE WILL CONTINUE WITH CURRENT PLAN OF CARE TODAY. WE PLAN TO CONSULT FOR A PORT A CATH. OTHERWISE, WE PLAN TO FOLLOW UP WITH AM LABS AND CONTINUE TO MONITOR. - Past Medical Family Social History Past Med/Fam/Surg Hx: No changes since H&P Allergies: Allergies No Known Drug Allergies Allergy (Verified 11/26/18 21:41) - Review of Systems ROS: No change since H&P - Vital Signs and I&O's Vital Signs: Temperature 99.2 F Pulse Rate [Left] 100 Pulse Rate 111 Respiratory Rate 20 Blood Pressure [Left Arm] 121/75 Blood Pressure 90/53 O2 Sat by Pulse Oximetry 93 Intake and Output: Intake & Output 11/27/18 11/28/18 11/29/18 11/30/18 11:59 11:59 11:59 11:59 Intake Total 1225 / 1225 4217 / 4217 2820 / 2820 3155 / 3155 Output Total 750 / 750 3275 / 3275 4900 / 4900 2099 / 2099 Balance 475 / 475 942 / 942 -2080 / -2079 1055 / 1055 - Physical Exam Oriented: Normal Eyes: Normal Ear: Normal Nose: Normal Throat: Normal Respiratory: Normal Cardiovascular: Normal : Normal Auscultation: Bowel Sounds: Normal Palpation: Normal Tenderness: Normal Skin: Wound (SCABBED, HEALING WOUNDS TO RIGHT HEEL ) Musculoskeletal: Normal Psychiatric: Normal Mood Description: Calm Affect: Normal Speech Pattern: Clear, Appropriate - Laboratory and Diagnostics Result Diagrams: 11/29/18 05:18 11/29/18 08:45 Labs: 11/26/18 22:00 Blood Blood Culture - Preliminary 11/26/18 21:55 Blood Blood Culture - Preliminary Laboratory WBC 3.6 X10^3/uL (3.6-10.0) 11/29/18 05:18 RBC 3.40 X10^6/uL (4.7-6.0) L 11/29/18 05:18 Hgb 8.7 g/dL (13.5-18.0) L 11/29/18 05:18 Hct 26.6 % (42.0-54.0) L 11/29/18 05:18 MCV 78.2 fL (80.0-100.0) L 11/29/18 05:18 MCH 25.6 pg (27.0-34.0) L 11/29/18 05:18 MCHC 32.8 g/dL (33.0-35.0) L 11/29/18 05:18 RDW 25.7 % (11.6-16.5) H 11/29/18 05:18 Plt Count 63 X10^3/uL (150.0-450.0) L 11/29/18 05:18 Plt Count Comment Decreased (ADEQUATE) 11/29/18 05:18 MPV 8.4 fL (7.4-11.0) 11/29/18 05:18 Neut % (Auto) 55.6 % (42.0-75.0) 11/29/18 05:18 Lymph % (Auto) 31.1 % (21.0-51.0) 11/29/18 05:18 [place] % (Auto) 11.0 % (0.0-13.0) 11/29/18 05:18 Eos % (Auto) 1.9 % (0.9-2.9) 11/29/18 05:18 Baso % (Auto) 0.4 % (0.2-1.0) 11/29/18 05:18 Neut # (Auto) 2.0 x10^3/uL (2.2-4.8) L 11/29/18 05:18 Lymph # (Auto) 1.1 X10^3/uL (1.3-2.9) L 11/29/18 05:18 [place] # (Auto) 0.4 x10^3/uL (0.3-0.8) 11/29/18 05:18 Eos # (Auto) 0.1 x10^3/uL (0.0-0.2) 11/29/18 05:18 Baso # (Auto) 0.0 X10^3/uL (0.0-0.1) 11/29/18 05:18 Absolute Nucleated RBC 0.2 /100WBC 11/29/18 05:18 Total Counted 50 11/27/18 07:10 Neutrophils % (Manual) 46 % (39-76) 11/27/18 07:10 Band Neutrophils % 6 % (0-10) 11/27/18 07:10 Lymphocytes % (Manual) 39 % (13-43) 11/27/18 07:10 Monocytes % (Manual) 8 % (4-9) 11/27/18 07:10 Eosinophils % (Manual) 2 % (0-6) 11/27/18 07:10 Plt Morphology Comment Normal (NORMAL) 11/29/18 05:18 RBC Morphology Abnormal (NORMAL) 11/29/18 05:18 Dimorphic RBCs Slight 11/29/18 05:18 Hypochromasia Slight A 11/29/18 05:18 Anisocytosis 3+ A 11/29/18 05:18 Schistocytes Slight A 11/26/18 21:55 Sodium 136 mmol/L (136-145) 11/29/18 05:18 Corrected Sodium TNP 11/29/18 05:18 Potassium 3.9 mmol/L (3.5-5.1) 11/29/18 05:18 Chloride 103 mmol/L (98-107) 11/29/18 05:18 Carbon Dioxide 21.1 mmol/L (21-32) 11/29/18 05:18 BUN 8 mg/dL (7-18) 11/29/18 05:18 Creatinine 0.70 mg/dL (0.70-1.30) 11/29/18 08:45 Est GFR (MDRD) Af Amer > 60 (>60) 11/29/18 05:18 Est GFR (MDRD) Non-Af > 60 (>60) 11/29/18 05:18 Glucose 109 mg/dL (65-99) H 11/29/18 05:18 Lactic Acid 1.2 mmol/L (0.4-2.0) 11/27/18 15:02 Calcium 8.1 mg/dL (8.5-10.1) L 11/29/18 05:18 Corrected Calcium 9.5 mg/dL (8.5-10.1) 11/29/18 05:18 Iron 16 ug/dL (50-175) L 11/26/18 21:55 Transferrin 256 mg/dL (202-364) 11/26/18 21:55 Ferritin 31 ng/mL (26-388) 11/26/18 21:55 Total Bilirubin 0.60 mg/dL (0.2-1.0) 11/29/18 05:18 AST 25 Units/L (15-37) 11/29/18 05:18 ALT 14 Units/L (12-78) 11/29/18 05:18 Alkaline Phosphatase 184 Units/L (46-116) H 11/29/18 05:18 Total Protein 8.0 g/dL (6.4-8.2) 11/29/18 05:18 Albumin 2.2 g/dL (3.4-5.0) L 11/29/18 05:18 Globulin 5.8 g/dL (2.5-4.5) H 11/29/18 05:18 Albumin/Globulin Ratio 0.4 Ratio (1.1-2.1) L 11/29/18 05:18 Vitamin B12 602 pg/mL (193-986) 11/26/18 21:55 Folate 18.5 ng/mL (>8.6) 11/26/18 21:55 Specimen Type Clean catch urine 11/26/18 21:50 Urine Color [place] (YELLOW) 11/26/18 21:50 Urine Appearance Clear (CLEAR) 11/26/18 21:50 Urine pH 6.0 (5.0 - 8.0) 11/26/18 21:50 Ur Specific [place] 1.020 (1.000-1.030) 11/26/18 21:50 Urine Protein Negative (NEGATIVE) 11/26/18 21:50 Urine Glucose (UA) Negative (NEGATIVE) 11/26/18 21:50 Urine Ketones Negative (NEGATIVE) 11/26/18 21:50 Urine Occult Blood 4+ (NEGATIVE) 11/26/18 21:50 Urine Nitrite Negative (NEGATIVE) 11/26/18 21:50 Urine Bilirubin Negative (NEGATIVE) 11/26/18 21:50 Urine Urobilinogen 2+ (NORMAL) 11/26/18 21:50 Ur Leukocyte Esterase Negative (NEGATIVE) 11/26/18 21:50 Urine RBC 10-20 /HPF (NONE SEEN) 11/26/18 21:50 Urine WBC 0-2 /HPF (NONE SEEN) 11/26/18 21:50 Ur Squamous Epith Cells Rare /HPF (NEGATIVE) 11/26/18 21:50 Urine Bacteria Trace /HPF (NEGATIVE) 11/26/18 21:50 Ur Culture Indicated? No/not indicated 11/26/18 21:50 Stool Description Fob tube 11/26/18 22:36 Stl Occult Blood (IFOB) Negative (NEGATIVE) 11/26/18 22:36 Vancomycin Trough 7.8 ug/mL (15-20) L 11/29/18 08:45 Urine Opiates Screen Negative (NEG=<300) 11/26/18 21:50 Urine Methadone Screen Negative (NEG=<300) 11/26/18 21:50 Ur Barbiturates Screen Negative (NEG=<200) 11/26/18 21:50 Ur Phencyclidine Scrn Negative (NEG=<25) 11/26/18 21:50 Ur Amphetamines Screen Negative (NEG=<1000) 11/26/18 21:50 U Benzodiazepines Scrn Negative (NEG=<200) 11/26/18 21:50 Urine Cocaine Screen Negative (NEG=<300) 11/26/18 21:50 U Marijuana (THC) Screen Negative (NEG=<50) 11/26/18 21:50 Blood Type B POSITIVE 11/26/18 22:45 Antibody Screen Negative 11/26/18 22:45 Crossmatch See Detail 11/26/18 22:45 - Plan (1) Anemia Status: Acute Qualifiers: Anemia type: iron deficiency Iron deficiency anemia type: unspecified iron deficiency Qualified Code(s): D50.9 - Iron deficiency anemia, unspecified Plan: MONITOR H&H, HEMOCYTE, CONTINUE TO MONITOR (2) Fever Status: Resolved Qualifiers: Fever type: unspecified Qualified Code(s): R50.9 - Fever, unspecified Plan: CONTINUE TO MONITOR (3) Acquired pancytopenia Status: Acute Plan: CONTINUE TO MONITOR (4) Acute hypotension Status: Resolved Plan: IV FLUIDS, CONTINUE TO MONITOR
[2018-11-30] MEDS ORDERED: PHARMACY COMMENT IV NR (13:30)
== END 2018-11-30 02:00 | disposition expired ==
LOC: ER 21:11 → MED/SURG 21:11
PROVIDERS: ADMIT Internal Medicine; ATTEND Internal Medicine
DX: D61.818 Other pancytopenia; Z79.899 Other long term (current) drug therapy; D50.9 Iron deficiency anemia, unspecified; I95.89 Other hypotension; R50.9 Fever, unspecified; R09.2 Respiratory arrest; R53.1 Weakness; E87.1 Hypo-osmolality and hyponatremia
CPT/HCPCS: 36415; 36430; 71010; 71045; 80053; 80202; 80307; 81001; 82270; 82565; 82607; 82728; 82746; 83540; 83605; 84466; 85025; 85060; 86850; 86900; 86901; 86922; 87040; 96365; 96367; 96374; 97162; 99284; A4222; P9016; G0378; G0434; J0171; J1200; J2310; J3370; J3490; J7030; J7040; J7060